=== PATIENT | female | born 1935 | race Caucasian/White ===

== ENCOUNTER → 2023-03-22 14:55 | Outpatient (REF) | payer MEDICARE, BC, SELFPAY ==
[2023-03-22 16:33] LABS: ALT (SGPT) 13 U/L (0-35); AST (SGOT) 25 U/L (14-36); Albumin 4.1 g/dl (3.5-5.0); Alkaline Phosphatase 55 U/L (38-126); Blood Urea Nitrogen 26 mg/dl (7-17); Calcium 9.6 mg/dl (8.4-10.2); Carbon Dioxide 28 mmol/L (22-30); Chloride 102 mmol/L (98-107); Glucose 100 mg/dl (70-99); Potassium 3.8 mmol/L (3.5-5.1); Sodium 139 mmol/L (135-145); Total Bilirubin 0.6 mg/dl (0.2-1.3); eGFR > 60.00
== END ==
LOC: REG 14:55
PROVIDERS: ATTENDING PHYSICIAN Surgery; FAMILY PHYSICIAN Physician Assistant Medical
DX: C50.411 Malignant neoplasm of upper-outer quadrant of right female breast (principal); Z01.812 Encounter for preprocedural laboratory examination
CPT/HCPCS: 36415; 71046; 80053

== ENCOUNTER → 2023-03-25 15:35 | Outpatient (REF) | payer MEDICARE, BC, SELFPAY | LOC: HWRAD 15:35 | PROVIDERS: ATTENDING PHYSICIAN Physical Medicine & Rehabilitation; FAMILY PHYSICIAN Physician Assistant Medical | DX: M54.16 Radiculopathy, lumbar region (principal) | CPT/HCPCS: 72131 ==

== ENCOUNTER 2023-04-15 06:26 | Inpatient (IN) | payer MEDICARE, BC, SELFPAY ==
[2023-04-11 08:40] LABS: Hematocrit 34.5 % (37.0-47.0); Hemoglobin 11.8 g/dL (12.0-16.0); Mean Corp Hgb Conc. 34.2 g/dL (33.0-37.0); Mean Corpuscular Hgb 30.6 pg (27.0-31.0); Mean Corpuscular Volume 89.4 fL (81.0-99.0); Mean Platelet Volume 9.7 fL (7.4-10.4); Platelet Count 213 10^3/uL (130-400); Red Blood Cell Count 3.86 10^6/uL (4.20-5.40); Red Cell Dist. Width 13.2 % (11.5-14.5); White Blood Cell Count 5.4 10^3/uL (4.8-10.8)
[2023-04-11 09:05] LABS: ALT (SGPT) 12 U/L (0-35); AST (SGOT) 26 U/L (14-36); Albumin 4.1 g/dl (3.5-5.0); Alkaline Phosphatase 64 U/L (38-126); Blood Urea Nitrogen 23 mg/dl (7-17); Calcium 9.2 mg/dl (8.4-10.2); Carbon Dioxide 29 mmol/L (22-30); Chloride 101 mmol/L (98-107); Glucose 103 mg/dl (70-99); Potassium 4.3 mmol/L (3.5-5.1); Sodium 138 mmol/L (135-145); Total Bilirubin 0.6 mg/dl (0.2-1.3); Total Protein 7.3 g/dl (6.3-8.2); eGFR > 60.00
[2023-04-11 09:17] LABS: Prealbumin (Transthyretin) 14.6 mg/dl (17.6-36.0)
[2023-04-11 09:30] LABS: Vitamin D, 25-OH*** 45.5 ng/mL (30-80)
[2023-04-11 16:44] VITALS: BMI 42.2
[2023-04-15] VITALS (12 sets, daily range): BP systolic 125–174; BP diastolic 55–83; BMI 42.2
[2023-04-15] MEDS: NORMOSOL-R 1000 IV (08:30)
--- NOTE | 2023-04-15 11:19 | W.IMMPOSTOP ---
Surgical Immed Post Op Note
-
Primary Surgeon: Michele
Assisting Surgeon: None
Pre-op Diagnosis: Right breast ca
Post-op Diagnosis: Same
Procedure Performed: Right modified radical mastectomy
Anesthesia Type: GET
Specimen / Cultures: Right breast and axillary contents
Estimated Blood Loss: 30cc
Complications: None
Operative Findings: None
Axillary Lymph Node Dissection
-
Operation performed with Curative Intent: No
Boundaries: Axillary Vein, Chest Wall, Latissimus Dorsi
Resection performed within boundaries: Yes
Nerves ID'd & Preserved during Dissection: Long Thoracic Nerves, Thoracodorsal Nerve and Branches of Intercostobrachial Nerves
Level III Nodes were Removed: No
[2023-04-15] MEDS: DILAUDID 0.25 MG IV (12:10)
[2023-04-15] MEDS: D5/0.45%NSS with KCL 20 MEQ 1000 IV ×2 (13:06→13:59)
[2023-04-15] MEDS: ProAIR HFA INHALER INH (13:30)
--- NOTE | 2023-04-15 13:48 | PTCARENOTE ---
Pt arrived to 2S in bed. Full assessment completed. Pt drowsy but arouses to verbal stimuli. Nasal Cannula maintained. R breast incision, C/D/I, 4x4 surgical bra maintained. R REDDY drains x2 with sanguinous output noted. IVF infusing per order. Bed
locked and in the lowest position, safety maintained. Oriented to room and call carson, sleeping between care.
[2023-04-15] MEDS: ProAIR HFA INHALER 1 PUFF INH ×2 (15:21→20:17)
[2023-04-15] MEDS: NORCO 5/325 1 TABLET PO (18:36)
[2023-04-15] MEDS: HIPREX 1 GRAM PO (21:25)
[2023-04-15] MEDS: COLACE 100 MG PO (21:25)
[2023-04-16 03:46] VITALS: BP 118/47
[2023-04-16] MEDS: SYNTHROID 50 MCG PO (05:58)
[2023-04-16 07:15] VITALS: BP 141/60
[2023-04-16 07:41] LABS: Hematocrit 30.8 % (37.0-47.0); Hemoglobin 10.7 g/dL (12.0-16.0)
[2023-04-16 07:52] LABS: Blood Urea Nitrogen 30 mg/dl (7-17); Calcium 8.4 mg/dl (8.4-10.2); Carbon Dioxide 30 mmol/L (22-30); Chloride 100 mmol/L (98-107); Estimated Creatinine Clearance 57 ml/min; Glucose 121 mg/dl (70-99); Potassium 3.9 mmol/L (3.5-5.1); Sodium 137 mmol/L (135-145); eGFR > 60.00
[2023-04-16] MEDS: ProAIR HFA INHALER 1 PUFF INH ×4 (07:56→18:14)
[2023-04-16] MEDS: LEXAPRO 10 MG PO (08:48)
[2023-04-16] MEDS: VITAMIN D3 (cholecalciferol) 25 MCG PO (08:48)
[2023-04-16] MEDS: HIPREX 1 GRAM PO ×2 (08:48→20:21)
[2023-04-16] MEDS: CLARITIN 10 MG PO (08:49)
[2023-04-16] MEDS: COLACE 100 MG PO ×2 (08:49→20:21)
[2023-04-16] MEDS: COZAAR 50 MG PO (08:49)
[2023-04-16] MEDS: MYRBETRIQ EXTENDED RELEASE 50 MG PO (08:49)
[2023-04-16] MEDS: PROTONIX 40 MG PO (08:49)
--- NOTE | 2023-04-16 10:43 | W.PN.UPDATE ---
Update Note
Progress Note Update
Pt is POD # 1 S/P right modified radical mastectomy for right breast cancer that progressed on neoadjuvant endocrine therapy. She is awake, alert in bed. Did eat some breakfast. States she is weak and can't move herself in bed nor get out of bed
without assistance. Wound redressed and there is some bloody drainage from the incision laterally. Needs rehab evaluation as she lives alone and can't perform ADLs. 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
dehiscence of the incision. At risk for stroke, will restart Eliquis tonight and monitor for bleeding. Needs ongoing inpatient hospitalization.
[2023-04-16 11:10] VITALS: BP 149/50
--- NOTE | 2023-04-16 11:15 | CM ---
Cm met with pt and son/Koby bedside
[place] with 2 KIRT thru garage
Stairglide to residence
Pt notes independence with her ADLs with use a WW
She also has a showrrt chair, rails, and cpap which she does not utilize at home
Pt has hx at [facility] and [facility]
PCP- Karen Guevara
Rx- [facility]
Discussion with surgeon- weakness noted
Might need SNF, awaiting outcome of PT eval
Deferred dc planning to [facility]
Discharge Disposition- home with VN vs SNF
[2023-04-16 12:27] VITALS: BP 145/56; PULSE 89; O2SAT 98
[2023-04-16] MEDS: D5/0.45%NSS with KCL 20 MEQ IV (14:35)
[2023-04-16 15:15] VITALS: BP 152/59
[2023-04-16] MEDS: TYLENOL 650 MG PO (18:19)
[2023-04-16] MEDS: ELIQUIS 5 MG PO (20:21)
[2023-04-16] MEDS: XALATAN OPHTHALMIC SOLUTION 1 DROP BOTH EYES (20:26)
--- NOTE | 2023-04-16 21:30 | PTCARENOTE ---
Pt. asking to use BSC. Extreme difficulty getting self turned to the edge of bed with two person assist, c/o pain when attempting to help move pt's legs. Pt. then able to stand with rolling walker but stated she could not move her legs to pivot to
the BSC despite being able to earlier in the day. Pt. stood at the bedside for several minutes being unable to move before needing to sit back down. Bed heart used at this time. Will attempt again later.
[2023-04-16] MEDS: NORCO 5/325 1 TABLET PO (21:49)
[2023-04-16 23:11] VITALS: BP 137/57
[2023-04-17] MEDS: TYLENOL 650 MG PO (04:25)
[2023-04-17 07:15] VITALS: BP 163/63
[2023-04-17] MEDS: ELIQUIS 5 MG PO ×2 (07:49→20:25)
[2023-04-17] MEDS: SYNTHROID 50 MCG PO (07:49)
[2023-04-17] MEDS: CLARITIN 10 MG PO (07:49)
[2023-04-17] MEDS: HIPREX 1 GRAM PO ×2 (07:49→20:25)
[2023-04-17] MEDS: COLACE 100 MG PO ×2 (07:49→20:25)
[2023-04-17] MEDS: COZAAR 50 MG PO (07:49)
[2023-04-17] MEDS: MYRBETRIQ EXTENDED RELEASE 50 MG PO (07:49)
[2023-04-17] MEDS: LEXAPRO 10 MG PO (07:49)
[2023-04-17] MEDS: PROTONIX 40 MG PO (07:49)
[2023-04-17] MEDS: VITAMIN D3 (cholecalciferol) 25 MCG PO (07:49)
[2023-04-17] MEDS: ProAIR HFA INHALER 1 PUFF INH ×4 (08:13→19:47)
--- NOTE | 2023-04-17 12:18 | W.PN.UPDATE ---
Update Note
Progress Note Update
Pt is POD #2 S/P right modified radical mastectomy. She states she feels a little better than yesterday, was able to move her left leg a little more. Tolerating lunch. Eliquis initiated and no signs of bleeding so far. Nurse will change out surgical
bra. Continue to optimize transfers, standing and ambulating per PT. Await disposition plaining. Pt must remain inpatient for bleedning monitoring, flap monitoring and requiring maximum assistance with transfers and sitting and ambulation.
[2023-04-17 12:45] VITALS: PULSE 60; O2SAT 94
[2023-04-17 13:12] VITALS: PULSE 60; O2SAT 94
[2023-04-17 15:15] VITALS: BP 127/64
--- NOTE | 2023-04-17 15:46 | CM ---
Bedside meeting with pt to discussed dc planning
Acute vs SNF recommended
Pt deferred planning to [facility]
Call with [facility]- options discussed
[facility]ing [facility]
PASSR completed and referrals sent via [facility]
Referral also sent to Michael
Pt will have qualifying stay tomorrow
Discharge Disposition- acute vs SNF
[2023-04-17] MEDS: XALATAN OPHTHALMIC SOLUTION 1 DROP BOTH EYES (20:25)
[2023-04-17 23:00] VITALS: BP 154/65
[2023-04-18] MEDS: BENADRYL 25 MG PO (00:11)
[2023-04-18] MEDS: NORCO 5/325 1 TABLET PO (03:46)
[2023-04-18 07:00] VITALS: BP 165/64
[2023-04-18] MEDS: SYNTHROID 50 MCG PO (07:05)
--- NOTE | 2023-04-18 08:00 | W.PN.UPDATE ---
Update Note
Progress Note Update
88 Y/O POD #3 S/P right modified radical mastectomy. Recovering well; await Rehab placement. Dressing should be changed daily. PO check in my office for drain removal in 7-10 days.
[2023-04-18] MEDS: ProAIR HFA INHALER 1 PUFF INH ×2 (08:26→11:50)
[2023-04-18] MEDS: COLACE 100 MG PO (08:39)
[2023-04-18] MEDS: VITAMIN D3 (cholecalciferol) 25 MCG PO (08:39)
[2023-04-18] MEDS: ELIQUIS 5 MG PO (08:39)
[2023-04-18] MEDS: HIPREX 1 GRAM PO (08:40)
[2023-04-18] MEDS: COZAAR 50 MG PO (08:40)
[2023-04-18] MEDS: LEXAPRO 10 MG PO (08:40)
[2023-04-18] MEDS: PROTONIX 40 MG PO (08:40)
[2023-04-18] MEDS: CLARITIN 10 MG PO (08:40)
[2023-04-18] MEDS: MYRBETRIQ EXTENDED RELEASE 50 MG PO (08:40)
--- NOTE | 2023-04-18 12:03 | CM ---
Addendum entered by Archie Dotson 04/18/23 12:44:
CM received a phone call from [facility] acute rehabilitation engineer and she confirmed that a referral for acute level of rehab ay [facility] has been denied.
[facility] consult cancelled.
CM spoke to [facility] director of valuation and she confirmed that pt is accepted for admission today. All other SNFs that received a referral denied a referral.
According to MD pt is medically stable to be discharged today.
CM met with pt and spoke to pt's son Parker and daughter in law Samantha and they expressed their agreement with discharge. IMM reviewed with pt, signed, placed in chart, pt has a copy.
Both pt and her family are aware that [facility] has accepted the pt and they expressed their agreement with pt going to [facility] for a short term rehab.
will arrange transportation, BLS. PMNC completed and left with .
[facility] nursing report: [phone]
Discharge instructions fax: [phone]
D/C plan: [facility] today
Original Note:
CM following re: discharge planing.
Reviewed pt's chart, met with pt.
PT and OT evaluations noted - acute rehab vs SNF recommended.
No SNF has responded to accept the pt.
CM spoke to [facility] acute rehabilitation engineer, assembly member consult requested. [facility] acute rehabilitation engineer following. Awaiting for determination.
D/C plan: probably [facility]
CM will follow to assist pt with discharge planning.
[2023-04-18 12:24] VITALS: PULSE 91; O2SAT 96
--- NOTE | 2023-04-18 12:29 | W.DS.TRANS ---
DC Summary - Loss Mitigation Specialist
-
Discharge Instructions:
Discharge Diagnosis/Procedures Right breast cancer, S/P right modified radical
mastectomy
Diet Regular,Supplements
Additional Diets twice daily protein supplement
Activity Other activity
Additional Activity No weight bearing RUE
Driving Restrictions No driving
Bathing Restrictions OK to Shower
Wound Care Change dressing daily. Strip drains daily and
record drainage
Instructions:
Stand-Alone Forms:
Changes to Home Medications: No
Discharge Medications:
DC Medications w/original date entered in [facility]
escitalopram oxalate 10 mg tablet 10 mg PO DAILY Mental Health/Anxiety 05/22/18
levothyroxine 50 mcg tablet 50 mcg PO DAILY Thyroid 05/22/18
apixaban 5 mg tablet (Eliquis) 5 mg PO BID Blood clot prevention/tx ##0 08/31/20
fluticasone 250 mcg-salmeterol 50 mcg/dose blistr powdr for inhalation (Wixela Inhub) 1 inh inhalation R BID Lung/breathing issues ##0 08/31/20
furosemide 20 mg tablet (Lasix) 20 mg PO DAILY Fluid retention/Swelling 03/07/22
losartan 50 mg tablet 50 mg PO DAILY Blood pressure 03/07/22
mirabegron 50 mg tablet,extended release 24 hr (Myrbetriq) 50 mg PO DAILY Urinary issue 03/07/22
albuterol sulfate 2.5 mg/3 mL (0.083 %) solution for nebulization 2.5 mg inhalation R Q6HPRN PRN SOB,WHEEZING,COUGH 05/28/22
albuterol sulfate 90 mcg/actuation aerosol inhaler 1 puff inhalation Q4HPRN PRN SOB 05/28/22
fluticasone propionate 50 mcg/actuation nasal spray,suspension 1 spray intranasal DAILY Congestion 05/28/22
acetaminophen 500 mg tablet (Tylenol Extra Strength) 1,000 mg PO BID PRN mild pain 04/12/23
cholecalciferol (vitamin D3) 25 mcg (1,000 unit) tablet (Vitamin D3) 25 mcg PO DAILY Supplement 04/12/23
hydrocodone 10 mg-acetaminophen 325 mg tablet 1 tab PO PRN PRN pain 04/12/23
letrozole 2.5 mg tablet 2.5 mg PO DAILY Cancer 04/12/23
loratadine 10 mg tablet 10 mg PO DAILY Allergies 04/12/23
methenamine hippurate 1 gram tablet 1 g PO BID Urinary Issue 04/12/23
acetaminophen 650 mg tablet,extended release 650 mg PO Q8H PRN pain 04/15/23
Home Medication Changes
Pending Results: Yes
Additional Pending Results:
Right breast and axillary content pathology.
[2023-04-18 15:00] VITALS: BP 125/63
[2023-04-18] MEDS: ProAIR HFA INHALER INH (16:35)
--- NOTE | 2023-04-21 08:42 | W.DCSUMMARY ---
Discharge Summary
Discharge Data
Date of Admission: 04/15/23
Date of Discharge: 04/21/23
-
Pending Results: Yes
Additional Pending Results:
Pathology report
Hospital Course
Recovered well, could not transfer without assistance.
Discharge Plan
-
Patient Disposition: Acute Rehab Facility
Discharge Diagnosis/Procedures: Right breast cancer, S/P right modified radical mastectomy
Condition: Good
Diet: Regular and Supplements
Additional Diets: twice daily protein supplement
Activity: Other activity
Additional Activity: No weight bearing RUE
Driving Restrictions: No driving
Bathing Restrictions: OK to Shower
Wound Care: Change dressing daily. Strip drains daily and record drainage
Referrals:
Karen Guevara MD [Family Provider] -
Prescriptions:
Continued
levothyroxine 50 MCG tablet
50 mcg PO DAILY
escitalopram oxalate 10 MG tablet
10 mg PO DAILY
fluticasone propion-salmeterol [Wixela Inhub] 250-50 mcg/dose Blister With Device
1 inh INHALATION R BID Qty: 0
Eliquis 5 mg Tablet
5 mg PO BID Qty: 0
losartan 50 mg Tablet
50 mg PO DAILY
furosemide [Lasix] 20 mg Tablet
20 mg PO DAILY
Myrbetriq 50 mg Tablet Extended Release 24 Hr
50 mg PO DAILY
albuterol sulfate 2.5 mg /3 mL (0.083 %) solution for nebulization
2.5 mg inhalation R Q6HPRN PRN (Reason: SOB,WHEEZING,COUGH)
albuterol sulfate 90 mcg/actuation HFA aerosol inhaler
1 puff INHALATION Q4HPRN PRN (Reason: SOB)
fluticasone propionate 50 mcg/actuation [place],Suspension
1 spray INTRANASAL DAILY
methenamine hippurate 1 gram Tablet
1 g PO BID
letrozole 2.5 mg Tablet
2.5 mg PO DAILY
loratadine 10 mg Tablet
10 mg PO DAILY
cholecalciferol (vitamin D3) [Vitamin D3] 25 mcg (1,000 unit) Tablet
25 mcg PO DAILY
hydrocodone-acetaminophen 10-325 mg tablet
1 tab PO PRN PRN (Reason: pain)
acetaminophen [Tylenol Extra Strength] 500 mg tablet
1,000 mg PO BID PRN (Reason: mild pain)
acetaminophen 650 mg Tablet Extended Release
650 mg PO Q8H PRN (Reason: pain)
Discharge Orders:
Discharge Patient (As Directed); Ordered 04/18/23
Ordered By: Stella Bautista
Discharge Date and Time
Discharge Date/Time: 04/18/23 18:00
== END 2023-04-18 18:00 | DRG 580 ==
LOC: 2 SOUTH 06:26
PROVIDERS: ADMITTING PHYSICIAN Surgery; FAMILY PHYSICIAN Surgery
PROC: 07B50ZX Excision of Right Axillary Lymphatic, Open Approach, Diagnostic (ICD-10-PCS; 2023-04-15)
PROC: 0HTT0ZZ Resection of Right Breast, Open Approach (ICD-10-PCS; 2023-04-15)
DX: C50.911 Malignant neoplasm of unspecified site of right female breast (principal); C77.3 Secondary and unspecified malignant neoplasm of axilla and upper limb lymph nodes; I10 Essential (primary) hypertension; I25.10 Atherosclerotic heart disease of native coronary artery without angina pectoris; I48.91 Unspecified atrial fibrillation; G47.33 Obstructive sleep apnea (adult) (pediatric); K21.9 Gastro-esophageal reflux disease without esophagitis; Z79.01 Long term (current) use of anticoagulants
CPT/HCPCS: 88307; 36415; 80048; 80053; 82306; 84134; 85014; 85018; 85027; 94640; 97112; 97116; 97163; 97167; 97530; 97535; A4648; C1729

== ENCOUNTER → 2023-05-12 17:48 | Outpatient (REF) | payer MEDICARE, BC, SELFPAY ==
[2023-05-12 18:17] LABS: Urine Albumin Trace (Neg - Trace); Urine Bilirubin Negative (Negative); Urine Character Clear (Clear); Urine Color Yellow; Urine Glucose Negative (Negative); Urine Ketone Negative (Negative); Urine Leukocyte Trace (Negative); Urine Nitrite Negative (Negative); Urine Occult Blood Negative (Negative); Urine Urobilinogen Negative (Neg - 1+)
[2023-05-12 18:24] LABS: Urine Calcium Oxalate Crystals Present; Urine Red Blood Cell None Seen /HPF (0-2); Urine Squamous Cell 0-2 /LPF (Few)
== END ==
LOC: OLABP 17:48
PROVIDERS: ATTENDING PHYSICIAN Student in an Organized Health Care Education/Training Program
DX: M62.81 Muscle weakness (generalized) (principal); M62.59 Muscle wasting and atrophy, not elsewhere classified, multiple sites; C50.411 Malignant neoplasm of upper-outer quadrant of right female breast; R39.15 Urgency of urination
CPT/HCPCS: 81003; 81015; 87086

== ENCOUNTER 2023-05-29 19:57 | Emergency (ER) | payer MEDICARE, BC, SELFPAY ==
[2023-05-29 20:01] VITALS: BP 123/98
[2023-05-29 20:14] LABS: % Basophils 0.4 % (0-2); % Eosinophils 1.3 % (0-6); % Immature Granulocytes 0.3 % (0-0.5); % Lymphocytes 7.9 % (20.5-51.1); % Monocytes 7.9 % (1.7-9.3); % Neutrophils 82.2 % (42.2-75.2); Absolute Eosinophils 0.1 10^3/uL (0-0.7); Absolute Lymphocytes 0.8 10^3/uL (1.2-3.4); Absolute Monocytes 0.8 10^3/uL (0.1-0.6); Absolute Neutrophils 8.5 10^3/uL (1.4-6.5); Hematocrit 35.8 % (37.0-47.0); Hemoglobin 11.8 g/dL (12.0-16.0); Mean Corpuscular Hgb 30.1 pg (27.0-31.0); Mean Corpuscular Volume 91.3 fL (81.0-99.0); Mean Platelet Volume 9.3 fL (7.4-10.4); Nucleated Red Blood Cells % 0 %; Platelet Count 237 10^3/uL (130-400); Red Blood Cell Count 3.92 10^6/uL (4.20-5.40); Red Cell Dist. Width 13.9 % (11.5-14.5); White Blood Cell Count 10.4 10^3/uL (4.8-10.8)
[2023-05-29 20:33] LABS: ALT (SGPT) 16 U/L (0-35); AST (SGOT) 25 U/L (14-36); Alkaline Phosphatase 55 U/L (38-126); Blood Urea Nitrogen 26 mg/dl (7-17); Calcium 9.1 mg/dl (8.4-10.2); Carbon Dioxide 26 mmol/L (22-30); Chloride 102 mmol/L (98-107); Glucose 168 mg/dl (70-99); Potassium 3.8 mmol/L (3.5-5.1); Sodium 137 mmol/L (135-145); Total Bilirubin 0.7 mg/dl (0.2-1.3); Total Protein 7.2 g/dl (6.3-8.2); eGFR > 60.00
[2023-05-29 22:01] VITALS: BMI 35.8
--- NOTE | 2023-05-29 23:32 | ED.GENMED ---
History of Present Illness
General
Chief Complaint: Bowel Problem
Source: patient, family (Son and [id number] at bedside) and previous hospital records (Hospitalization April 14 to April 17 for right modified radical mastectomy performed on April 14)
Exam Limitations: none
Time Seen by Provider: 05/29/23 22:41
Travel History
Have you had any contact with someone who has COVID-19?: No
Do you have any symptoms of coronavirus? Fever > 100 degrees, chills, cough, shortness of breath, sore throat, loss of taste or smell, muscle aches, or headache?: No
History of Present Illness
History of Present Illness:
This is an 88-year-old woman who resides at home with family. She has history of locally advanced right breast cancer initially treated with hormone therapy but due to progression of disease she underwent right modified radical mastectomy April 14.
Has been doing well postoperatively and has not required narcotic pain medication. She does however admit to somewhat chronic constipation with occasional episodes of severe constipation. She does not take laxatives nor stool softeners on a daily
basis.
She complains of 1 week history of significant constipation with moderate rectal pressure and inability to pass a stool. She took a dose of MiraLAX or stool softener earlier today, thus far ineffective.
Her rcbxfesb-[id number] attempted to manually disimpact but states there is a large amount of soft stool within her rectum that was difficult to remove. She then tried a fleets enema without success.
She denies abdominal pain, no difficulty urinating, no fever nor chills.
She has chronic bilateral lower extremity edema, chronic ambulatory dysfunction uses a walker as well as wheelchair. No recent falls.
Past History
Past History
ED Past Medical History: Arrthythmia (PAF, chronically maintained on Eliquis), Asthma, CAD, Cancer (Right breast cancer), GERD, HTN, Hypothyroidism, Other (Osteoarthritis, spinal stenosis/ambulatory dysfunction, chronic cystitis, obstructive sleep
apnea) and Other (Pacemaker)
ED Past Surgical History: Appendectomy, Cardiac (Pacemaker 2019), Cholecystectomy, Gynecological (Hysterectomy), Orthopedic (Knee replacement) and Other (Right mastectomy April 15, 2023)
Social History
Tobacco: Non-smoker
Alcohol: None
Personal:
Living: with family ( family is close by)
Employment: Retired
Family History
Family History: Other
Phy Exam
Physical Exam
Physical Exam:
GENERAL: This is an 88-year-old obese woman who appears her stated age, awake and alert, pleasant, appears mildly uncomfortable but easily communicative. Son and deizmwle-se-[id number] accompanying.
EYE: anicteric
NECK: Supple, nontender, no meningismus, no significant adenopathy.
ENT: oral mucosa is moist. No rhinorrhea.
CARDIAC: Regular rate and rhythm. no murmur.
LUNGS: Clear breath sounds bilaterally, no acute respiratory distress, no wheezes/rales/rhonchi
ABDOMEN: Rotund, soft, nondistended, without focal tenderness, no r/g, no cvat. normoactive BS.
NEUROLOGICAL: Alert and oriented x3, no focal neuro deficits.
SKIN: Warm and dry, normal color, mild bilateral lower extremity venous stasis skin thickening with chronic appearing alecia discoloration bilateral lower extremities
MUSCULOSKELETAL: +2-3 pitting edema bilateral lower extremities, peripheral pulses are full and equal b/l. No palpable tenderness.
PSYCH: Normal and appropriate interaction.
Course
Orders/Labs/Results
Orders:
Orders
05/29/23 20:07
CMP [Comprehensive Metabolic Panel] Urgent
Complete Blood Count/With Diff Urgent
05/29/23 22:45
CR Obstruct Series W/pa Chest Urgent
Comment:
Reason For Exam: abd discomfort, constipation x 1 week
05/29/23 23:44
Enema- Treatment ONCE
Type: Milk of Molasses
Abnormal Lab Results
05/29/23
20:07
RBC 3.92 L 10^6/uL
(4.20-5.40)
Hgb 11.8 L g/dL
(12.0-16.0)
Hct 35.8 L %
(37.0-47.0)
Absolute Neuts (auto) 8.5 H 10^3/uL
(1.4-6.5)
Absolute Lymphs (auto) 0.8 L 10^3/uL
(1.2-3.4)
Absolute Monos (auto) 0.8 H 10^3/uL
(0.1-0.6)
Neutrophils % 82.2 H %
(42.2-75.2)
Lymphocytes % 7.9 L %
(20.5-51.1)
BUN 26 H mg/dl
(7-17)
Glucose 168 H mg/dl
(70-99)
05/29/23 20:07
05/29/23 20:07
Vital Signs
Initial and Last Documented VS:
Initial Vital Signs
Temp Pulse Resp BP Pulse Ox
98.4 F 71 16 123/98 97
05/29/23 20:01 05/29/23 20:01 05/29/23 20:01 05/29/23 20:01 05/29/23 20:01
Last Documented Vital Signs
Temp Pulse Resp BP Pulse Ox
98.4 F 88 20 112/75 94
05/29/23 20:01 05/30/23 02:14 05/30/23 02:14 05/30/23 02:14 05/30/23 02:14
MDM/Problems Addressed
Differential Diagnosis Includes:
Concern for acute on chronic constipation, fecal impaction. Abdominal exam is soft and nontender, bowel obstruction is much less likely.
Labs are reassuring with normal white blood cell count, very mild but stable anemia.
Chemistries are unremarkable save for mildly elevated random glucose of 168.
Normal creatinine, BUN mildly elevated at 26, similar to previous.
Will check obstruction series, assess for degree of constipation.
Patient may require digital disimpaction as well as enema.
*Radiology
Radiology exam reviewed: preliminary read by ED provider (Obstruction series shows moderate stool in the rectum and distal sigmoid but no evidence of significant fecal impaction, no obstruction.)
*Pulse Oximetry
Patient hypoxic: no
*Critical Care Note
Total Time (30-74mins, 75-104mins- exclusive of procedures): Not Applicable
Update Note
Update Note:
05/30/2023 0105 AM
After digital disimpaction by nurse and enema patient has passed very large soft stool.
Feeling markedly improved.
Will discharge to home with recommendation she initiate daily MiraLAX.
Follow-up with PCP for recheck.
ED Attending Note
-
Portions of this chart may have been created with voice recognition software.� Occasional wrong word or��sound alike� substitutions may have occurred due to the inherent limitations of voice recognition software.
Discharge Plan
Departure
Patient Disposition: Home (Routine Discharge)
Date of Disposition: 05/30/23
Time of Disposition: 01:06
Patient with high blood pressure during this ER visit?: No
Condition: Good
Discharge Problem:
Fecal impaction in rectum
Instructions: Constipation, Adult (DC), Fecal Impaction (DC)
Prescriptions:
No Action
levothyroxine 50 MCG tablet
50 mcg PO DAILY
escitalopram oxalate 10 MG tablet
10 mg PO DAILY
fluticasone propion-salmeterol [Wixela Inhub] 250-50 mcg/dose Blister With Device
1 inh INHALATION R BID Qty: 0
Eliquis 5 mg Tablet
5 mg PO BID Qty: 0
losartan 50 mg Tablet
50 mg PO DAILY
furosemide [Lasix] 20 mg Tablet
20 mg PO DAILY
Myrbetriq 50 mg Tablet Extended Release 24 Hr
50 mg PO DAILY
albuterol sulfate 2.5 mg /3 mL (0.083 %) solution for nebulization
2.5 mg inhalation R Q6HPRN PRN (Reason: SOB,WHEEZING,COUGH)
albuterol sulfate 90 mcg/actuation HFA aerosol inhaler
1 puff INHALATION Q4HPRN PRN (Reason: SOB)
fluticasone propionate 50 mcg/actuation [place],Suspension
1 spray INTRANASAL DAILY
methenamine hippurate 1 gram Tablet
1 g PO BID
letrozole 2.5 mg Tablet
2.5 mg PO DAILY
loratadine 10 mg Tablet
10 mg PO DAILY
cholecalciferol (vitamin D3) [Vitamin D3] 25 mcg (1,000 unit) Tablet
25 mcg PO DAILY
hydrocodone-acetaminophen 10-325 mg tablet
1 tab PO PRN PRN (Reason: pain)
acetaminophen [Tylenol Extra Strength] 500 mg tablet
1,000 mg PO BID PRN (Reason: mild pain)
acetaminophen 650 mg Tablet Extended Release
650 mg PO Q8H PRN (Reason: pain)
Referrals:
Carolina Davis PA [Family Provider] - Call in 1-3 days for appt
Activity Restrictions/Additional Instructions:
I want you to start MiraLAX daily, 17 g which is 1 individual packet of MiraLAX versus 1 capful of MiraLAX mixed in water or tea or juice. Continue this on a daily basis to help keep your stools soft and easy to pass.
Interventions
Interventions:
*Risk Screen - Suicide Last Done: 05/29/23 20:01
*General Assessment Last Done: 05/29/23 20:01
*Neglect/Abuse Screening Last Done: 05/29/23 20:01
ED- Fall Risk Assessment Last Done: 05/29/23 21:59
*ED COVID-19 Vaccine History Last Done: 05/29/23 20:01
*Nursing Disposition Last Done: 05/30/23 02:14
LU-Wnemkw-Xcthqnasvt Assessment Last Done: 05/29/23 22:00
Discharge Date and Time
Discharge Date/Time: 05/30/23 01:55
Print Language: CHADIAN
[2023-05-30 01:40] VITALS: BP 112/75
[2023-05-30 02:14] VITALS: BP 112/75
== END 2023-05-30 01:55 | disposition home or self-care (01) ==
LOC: EMR 19:57
PROVIDERS: Student in an Organized Health Care Education/Training Program; EMERGENCY PHYSICIAN Emergency Medicine; FAMILY PHYSICIAN Physician Assistant Medical
DX: K56.41 Fecal impaction (principal); C50.911 Malignant neoplasm of unspecified site of right female breast; R60.0 Localized edema; R26.2 Difficulty in walking, not elsewhere classified; I48.0 Paroxysmal atrial fibrillation; J45.909 Unspecified asthma, uncomplicated; I25.10 Atherosclerotic heart disease of native coronary artery without angina pectoris; I10 Essential (primary) hypertension; K21.9 Gastro-esophageal reflux disease without esophagitis; G47.33 Obstructive sleep apnea (adult) (pediatric); M48.00 Spinal stenosis, site unspecified; M19.90 Unspecified osteoarthritis, unspecified site; N30.20 Other chronic cystitis without hematuria; E03.9 Hypothyroidism, unspecified; Z98.890 Other specified postprocedural states; Z95.0 Presence of cardiac pacemaker; Z79.01 Long term (current) use of anticoagulants; Z90.11 Acquired absence of right breast and nipple; Z90.49 Acquired absence of other specified parts of digestive tract; Z91.048 Other nonmedicinal substance allergy status
CPT/HCPCS: 99283; 74022; 80053; 85025

== ENCOUNTER → 2023-06-16 15:55 | Outpatient (REF) | payer MEDICARE, BC, SELFPAY | LOC: RAD 15:55 | PROVIDERS: ATTENDING PHYSICIAN Physician Assistant Medical | DX: R06.02 Shortness of breath (principal); R60.0 Localized edema | CPT/HCPCS: 71046 ==

== ENCOUNTER 2023-06-21 20:01 | Inpatient (IN) | payer MEDICARE, BC, SELFPAY ==
[2023-06-21 15:42] VITALS: BP 156/64
--- NOTE | 2023-06-21 16:25 | ED.GENMED ---
History of Present Illness
<Christoph Boucher PA-C - Last Filed: 06/24/23 21:46>
General
Chief Complaint: Skin Problem
Time Seen by Provider: 06/21/23 16:00
Travel History
Have you had any contact with someone who has COVID-19?: No
Do you have any symptoms of coronavirus? Fever > 100 degrees, chills, cough, shortness of breath, sore throat, loss of taste or smell, muscle aches, or headache?: No
History of Present Illness
History of Present Illness:
Patient is an 88-year-old female with past medical history of age-related memory loss, asthma, sleep apnea on CPAP, constipation, hypothyroidism, glaucoma, history of skin and breast cancer, anxiety, and history of chronic lower extremity swelling,
here today for evaluation of approximately 2 weeks of relatively painless bilateral symmetric lower extremity swelling. She also endorses redness and new skin changes. She denies significant pain or discomfort. No fevers. No chest pain or
difficulty breathing. She has been able to ambulate. She typically uses a walker for ambulation. Patient was evaluated by her primary care provider last week and started on cephalexin. She has been taking this medication without significant
improvement in symptoms. She was directed by her family doctor to seek evaluation in the hospital today given persistent symptoms.
Past History
<Christoph Boucher PA-C - Last Filed: 06/24/23 21:46>
Past History
ED Past Medical History: Arrthythmia (PAF, chronically maintained on Eliquis), Asthma, CAD, Cancer (Right breast cancer), GERD, HTN, Hypothyroidism, Other (Osteoarthritis, spinal stenosis/ambulatory dysfunction, chronic cystitis, obstructive sleep
apnea) and Other (Pacemaker)
ED Past Surgical History: Appendectomy, Cardiac (Pacemaker 2019), Cholecystectomy, Gynecological (Hysterectomy), Orthopedic (Knee replacement) and Other (Right mastectomy April 15, 2023)
Social History
Tobacco: Non-smoker
Alcohol: None
Personal:
Living: with family ( family is close by)
Employment: Retired
Family History
Family History: Other
Review of Systems
<Christoph Boucher PA-C - Last Filed: 06/24/23 21:46>
Review of Systems
All Other Systems: ROS reviewed and negative except as documented in HPI and ROS
Phy Exam
<Christoph Boucher PA-C - Last Filed: 06/24/23 21:46>
Physical Exam
Physical Exam:
GENERAL: Alert , in no apparent distress
EYE: pupils equal and reactive
NECK: Supple, no significant adenopathy.
ENT: o/p clr, mmm.
CARDIAC: Regular rate and rhythm .
LUNGS: Clear breath sounds bilaterally, no acute respiratory distress, no wheezes/rales/rhonchi
ABDOMEN: Soft, without focal tenderness, no r/g, no cvat
NEUROLOGICAL: Alert and oriented, no focal neuro deficits
SKIN: Warm and dry, skin intact.
MUSCULOSKELETAL: There is significant bilateral symmetric relatively nontender 4+ pitting edema to the bilateral lower extremities, there are chronic appearing hyperpigmented appearing lesions with scattered crusted scabs noted bilaterally, there is
mild nontender erythema noted throughout distally below the knees, there are no open wounds, no palpable cord, there is full range of motion, sensation and motor intact, pulses 2+ throughout, compartments soft throughout
PSYCH: Normal and appropriate interaction.
Course
<Christoph Boucher PA-C - Last Filed: 06/24/23 21:46>
Orders/Labs/Results
Orders:
Orders
06/21/23 16:23
CR Leg Tibia/fibula Left 2 Vw Urgent
Comment:
Reason For Exam: lower extremity redness/swelling
CR Leg Tibia/fibula Right 2 Vw Urgent
Comment:
Reason For Exam: lower extremity redness/swelling
06/21/23 16:24
CR Chest - 2 Views Urgent
Comment:
Reason For Exam: lower extremity swelling
06/21/23 16:30
Basic Metabolic Panel Urgent
Complete Blood Count/With Diff Urgent
Lactic Acid Urgent
NT-proBNP Urgent
Blood Culture Q30M
ARMIDA Source: Blood/Venous
Specimen Description:
Blood Culture Q30M
ARMIDA Source: Blood/Venous
Specimen Description:
06/21/23 17:29
Furosemide [Lasix] 40 mg IV ONCE ONE
06/21/23 17:50
Clindamycin 600 mg/50 ml [Cleocin] 600 mg in 50 ml IV NOW
06/21/23 19:14
Admit/Transfer Patient As Directed
Co-Sign Provider:
Level of Care: Inpatient admission
Assign to:: Medical/Surgical
Physician / Group: Hospitalist
Diagnosis: Cellulitis
Patient Condition: Fair
Reason for Hospitalization: Cellulitis
Lymphedema
Expected length of stay greater than two midnights?: Yes
ELOS- Estimated Length of Stay in days: 4
I certify the patient meets the requirements for IP care: Yes
06/21/23 19:22
Code Status As Directed
Resuscitation Status: Full Code
06/21/23 20:40
Hydrocodone 7.5/APAP 325 [Allen 7.5/325] 1 tablet PO Q6HPRN PRN
06/21/23 20:43
Albuterol [ProAIR HFA INHALER] 1 puff INH R Q4HPRN PRN
Apixaban [Eliquis] 5 mg PO BID
Loratadine [Claritin] 10 mg PO DAILY@1999
Polyethylene Glycol Powder [Miralax] 17 grams PO HSPRN PRN
06/21/23 20:43
INFECTIOUS DISEASE CONSULT Routine
Consulting Provider: Kathe León
Was physician already notified: Yes
Bladder Scan As Directed
Follow Bladder Retention/Intermittent Cath Algorithm?: Yes
PRN if no void in __ hours: 6
Frequency: Per Retention Algorithm
If Bladder Scan Result >: 400
then:: Straight cath
Straight Cath As Directed
Frequency: Per Retention Algorithm
Additional Instructions: straight cath as needed per acute urinary retention algorithm for 24 hrs
Additional Instructions: for bladder scan greater than 400 mL
Pt Eval And Treat Routine
Activity Level: Ambulate
06/21/23 21:00
Fluticasone/Salmeterol 115/21 [Advair Hfa 115/21 Mcg Inhaler] 2 puff INH R BID
Tolterodine Extended Release [Detrol LA] 2 mg PO DAILY@1999
06/21/23 22:00
Latanoprost [Xalatan Ophthalmic Solution] See Dose Instructions BOTH EYES HS
06/22/23 06:00
Levothyroxine [Synthroid] 50 mcg PO DAILY @ 0600
06/22/23 08:00
Escitalopram Oxalate [Lexapro] 10 mg PO DAILY
Losartan [Cozaar] 50 mg PO DAILY
06/22/23 12:00
Albuterol Nebs [Ventolin Nebules] 2.5 mg INH R DAILY@1200
Abnormal Lab Results
06/21/23
16:30
RBC 3.60 L 10^6/uL
(4.20-5.40)
Hgb 10.9 L g/dL
(12.0-16.0)
Hct 33.2 L %
(37.0-47.0)
MCHC 32.8 L g/dL
(33.0-37.0)
Absolute Lymphs (auto) 0.7 L 10^3/uL
(1.2-3.4)
Absolute Monos (auto) 0.8 H 10^3/uL
(0.1-0.6)
Lymphocytes % 11.3 L %
(20.5-51.1)
Monocytes % 12.6 H %
(1.7-9.3)
Eosinophils % 6.4 H %
(0-6)
BUN 31 H mg/dl
(7-17)
Glucose 113 H mg/dl
(70-99)
06/21/23 16:30
06/21/23 16:30
Vital Signs
Initial and Last Documented VS:
Initial Vital Signs
Temp Pulse Resp BP Pulse Ox
98.0 F 93 20 156/64 94
06/21/23 15:42 06/21/23 15:42 06/21/23 15:42 06/21/23 15:42 06/21/23 15:42
Last Documented Vital Signs
Temp Pulse Resp BP Pulse Ox
98.8 F 60 12 133/54 93
06/24/23 15:55 06/24/23 20:05 06/24/23 20:05 06/24/23 15:55 06/24/23 20:05
<Thais Preciado MD - Last Filed: 06/21/23 17:27>
Orders/Labs/Results
Orders:
Orders
06/21/23 16:23
CR Leg Tibia/fibula Left 2 Vw Urgent
Comment:
Reason For Exam: lower extremity redness/swelling
CR Leg Tibia/fibula Right 2 Vw Urgent
Comment:
Reason For Exam: lower extremity redness/swelling
06/21/23 16:24
CR Chest - 2 Views Urgent
Comment:
Reason For Exam: lower extremity swelling
06/21/23 16:30
Basic Metabolic Panel Urgent
Complete Blood Count/With Diff Urgent
Lactic Acid Urgent
NT-proBNP Urgent
Blood Culture Q30M
ARMIDA Source: Blood/Venous
Specimen Description:
Blood Culture Q30M
ARMIDA Source: Blood/Venous
Specimen Description:
06/21/23 17:29
Furosemide [Lasix] 40 mg IV ONCE ONE
06/21/23 17:50
Clindamycin 600 mg/50 ml [Cleocin] 600 mg in 50 ml IV NOW
06/21/23 19:14
Admit/Transfer Patient As Directed
Co-Sign Provider:
Level of Care: Inpatient admission
Assign to:: Medical/Surgical
Physician / Group: Hospitalist
Diagnosis: Cellulitis
Patient Condition: Fair
Reason for Hospitalization: Cellulitis
Lymphedema
Expected length of stay greater than two midnights?: Yes
ELOS- Estimated Length of Stay in days: 4
I certify the patient meets the requirements for IP care: Yes
06/21/23 19:22
Code Status As Directed
Resuscitation Status: Full Code
06/21/23 20:40
Hydrocodone 7.5/APAP 325 [Allen 7.5/325] 1 tablet PO Q6HPRN PRN
06/21/23 20:43
Albuterol [ProAIR HFA INHALER] 1 puff INH R Q4HPRN PRN
Apixaban [Eliquis] 5 mg PO BID
Loratadine [Claritin] 10 mg PO DAILY@1999
Polyethylene Glycol Powder [Miralax] 17 grams PO HSPRN PRN
06/21/23 20:43
INFECTIOUS DISEASE CONSULT Routine
Consulting Provider: Kathe León
Was physician already notified: Yes
Bladder Scan As Directed
Follow Bladder Retention/Intermittent Cath Algorithm?: Yes
PRN if no void in __ hours: 6
Frequency: Per Retention Algorithm
If Bladder Scan Result >: 400
then:: Straight cath
Straight Cath As Directed
Frequency: Per Retention Algorithm
Additional Instructions: straight cath as needed per acute urinary retention algorithm for 24 hrs
Additional Instructions: for bladder scan greater than 400 mL
Pt Eval And Treat Routine
Activity Level: Ambulate
06/21/23 21:00
Fluticasone/Salmeterol 115/21 [Advair Hfa 115/21 Mcg Inhaler] 2 puff INH R BID
Tolterodine Extended Release [Detrol LA] 2 mg PO DAILY@1999
06/21/23 22:00
Latanoprost [Xalatan Ophthalmic Solution] See Dose Instructions BOTH EYES HS
06/22/23 06:00
Levothyroxine [Synthroid] 50 mcg PO DAILY @ 0600
06/22/23 08:00
Escitalopram Oxalate [Lexapro] 10 mg PO DAILY
Losartan [Cozaar] 50 mg PO DAILY
06/22/23 12:00
Albuterol Nebs [Ventolin Nebules] 2.5 mg INH R DAILY@1200
Abnormal Lab Results
06/21/23
16:30
RBC 3.60 L 10^6/uL
(4.20-5.40)
Hgb 10.9 L g/dL
(12.0-16.0)
Hct 33.2 L %
(37.0-47.0)
MCHC 32.8 L g/dL
(33.0-37.0)
Absolute Lymphs (auto) 0.7 L 10^3/uL
(1.2-3.4)
Absolute Monos (auto) 0.8 H 10^3/uL
(0.1-0.6)
Lymphocytes % 11.3 L %
(20.5-51.1)
Monocytes % 12.6 H %
(1.7-9.3)
Eosinophils % 6.4 H %
(0-6)
BUN 31 H mg/dl
(7-17)
Glucose 113 H mg/dl
(70-99)
06/21/23 16:30
06/21/23 16:30
Vital Signs
Initial and Last Documented VS:
Initial Vital Signs
Temp Pulse Resp BP Pulse Ox
98.0 F 93 20 156/64 94
06/21/23 15:42 06/21/23 15:42 06/21/23 15:42 06/21/23 15:42 06/21/23 15:42
Last Documented Vital Signs
Temp Pulse Resp BP Pulse Ox
98.8 F 60 12 133/54 93
06/24/23 15:55 06/24/23 20:05 06/24/23 20:05 06/24/23 15:55 06/24/23 20:05
<Christoph Boucher PA-C - Last Filed: 06/24/23 21:46>
MDM/Problems Addressed
Differential Diagnosis Includes:
Patient is an 88-year-old female with past medical history of age-related memory loss, asthma, sleep apnea on CPAP, constipation, hypothyroidism, glaucoma, history of skin and breast cancer, anxiety, and history of chronic lower extremity swelling,
here today for evaluation of approximately 2 weeks of relatively painless bilateral symmetric lower extremity swelling. Overall, patient appears very well. She is mildly hypertensive here. Physical examination described above. Symptom/findings
may be cellulitic in nature versus noninfectious secondary to chronic venous stasis/lymphedema. Low suspicion for DVT given anticoagulation use and bilateral swelling. There is also no reported pain or significant tenderness. Findings may also be
secondary to a heart failure exacerbation. At this time, will obtain workup with screening labs and x-ray of the bilateral distal lower extremities and chest.
06/21/2023 17:40: Screening labs reveal mild anemia with a hemoglobin of 10.9. BUN 31 with a normal creatinine of 0.7. Glucose 113. Bilateral tip/fib x-ray reveals moderate diffuse subcutaneous edema. Chest x-ray negative. There is a normal
lactic acid and BNP level. Case discussed with ED attending, Dr. Preciado, who evaluated patient at bedside. Concern for failure of outpatient antibiotic therapy for cellulitis and therefore will provide IV antibiotics with clindamycin. We will
also provide diuresis with Lasix. Patient will be admitted to medicine. All questions answered.
<Christoph Boucher PA-C - Last Filed: 06/24/23 21:46>
*Critical Care Note
Total Time (30-74mins, 75-104mins- exclusive of procedures): Not Applicable
ED Attending Note
<Christoph Boucher PA-C - Last Filed: 06/24/23 21:46>
-
Portions of this chart may have been created with voice recognition software.� Occasional wrong word or��sound alike� substitutions may have occurred due to the inherent limitations of voice recognition software.
<Thais Preciado MD - Last Filed: 06/21/23 17:27>
ED Attending Note
Patient seen and examined by attending physician: Yes
I performed the substantive portion of visit, reviewed & personally made and approve the management plan that is documented in note by myself or HUGO.: Yes
ED Attending Note:
Patient presents with significant swelling and erythema bilateral lower extremities. Her family reports she has been on Keflex for about a week. Patient appears nontoxic, however, I am worried about persistent bilateral lower extremity cellulitis.
For this, she will need IV antibiotics. In addition, she will likely need IV Lasix. On exam, she is in no respiratory distress with clear breath sounds. She is significant swelling, erythema and warmth of her bilateral lower extremities.
Discharge Plan
Departure
Patient Disposition: Admit
Date of Disposition: 06/21/23
Time of Disposition: 17:44
Admit to: Med/Surg
Admit to doctor: Dr. Lauro Kidd
Presentation/result/management discussed w/ accepting MD/DO: Hospitalist
Patient with high blood pressure during this ER visit?: Yes
Condition: Fair
Covid-19: Not Applicable
Discharge Problem:
Bilateral cellulitis of lower leg
Interventions
Interventions:
*Risk Screen - Suicide Last Done: 06/21/23 15:42
*General Assessment Last Done: 06/21/23 15:42
*Neglect/Abuse Screening Last Done: 06/21/23 15:42
ED- Fall Risk Assessment Last Done: 06/21/23 15:57
*ED COVID-19 Vaccine History Last Done: 06/21/23 21:11
*Nursing Disposition Last Done: 06/21/23 20:43
ED- Cardiac Assessment Last Done: 06/21/23 15:57
ED- Pulmonary Assessment Last Done: 06/21/23 15:57
ED-Skin Assessment Last Done: 06/21/23 15:57
Discharge Date and Time
Discharge Date/Time: 06/21/23 20:49
[2023-06-21 16:49] LABS: % Basophils 0.6 % (0-2); % Eosinophils 6.4 % (0-6); % Immature Granulocytes 0.2 % (0-0.5); % Lymphocytes 11.3 % (20.5-51.1); % Monocytes 12.6 % (1.7-9.3); % Neutrophils 68.9 % (42.2-75.2); Absolute Eosinophils 0.4 10^3/uL (0-0.7); Absolute Lymphocytes 0.7 10^3/uL (1.2-3.4); Absolute Monocytes 0.8 10^3/uL (0.1-0.6); Absolute Neutrophils 4.4 10^3/uL (1.4-6.5); Hematocrit 33.2 % (37.0-47.0); Hemoglobin 10.9 g/dL (12.0-16.0); Mean Corp Hgb Conc. 32.8 g/dL (33.0-37.0); Mean Corpuscular Hgb 30.3 pg (27.0-31.0); Mean Corpuscular Volume 92.2 fL (81.0-99.0); Mean Platelet Volume 9.4 fL (7.4-10.4); Nucleated Red Blood Cells % 0 %; Platelet Count 211 10^3/uL (130-400); Red Cell Dist. Width 14.1 % (11.5-14.5); White Blood Cell Count 6.4 10^3/uL (4.8-10.8)
[2023-06-21 17:03] LABS: Lactic Acid 1.3 mmol/L (0.7-2.0)
[2023-06-21 17:08] LABS: Blood Urea Nitrogen 31 mg/dl (7-17); Calcium 9.1 mg/dl (8.4-10.2); Carbon Dioxide 28 mmol/L (22-30); Chloride 101 mmol/L (98-107); Glucose 113 mg/dl (70-99); Potassium 4.2 mmol/L (3.5-5.1); Sodium 137 mmol/L (135-145); eGFR > 60.00
[2023-06-21 17:12] LABS: NT-proBNP 183 pg/ml
[2023-06-21 17:49] VITALS: BMI 41.0
[2023-06-21] MEDS: LASIX 40 MG IV (17:53)
[2023-06-21] MEDS: CLEOCIN 50 IV (18:36)
--- NOTE | 2023-06-21 19:37 | HPS.HSE ---
Addendum entered and electronically signed by Manasa Ying MD 06/21/23 20:13:
pt seen and examined independently--Agree with plan as set forth by Dr. Gonzalez
GENERAL: well developed, well nourished, obese female in no apparent distress
HEENT: NC/AT
HEART: regular rate and rhythm, +S1, +S2
LUNGS : faint wheezes bilaterally throughout
ABDOM: soft, nontender, nondistended, + bowel sounds
EXT: no cyanosis, clubbing-- bilateral redness and warm to touch from knees down with 4+ pitting edema--smaller redder 'blisters' lower legs
NEUROLOGIC: tremor to left arm
: purewick in place with clear yellow urine
Bilateral lower extremity cellulitis --likely caused by lymphedema--doubt CHF (no h/o and pro BNP 183)--check US to r/o DVT (doubt as pt on Eliquis)--if neg, would use compression (cornelius wraps) and elevation--hold further lasix--agree with checking
ECHO--start IV vanco to cover for MRSA (pt hospitalized and in [place])--stop IV clinda--consult ID
Ambulatory dysfunction--due to bilateral lower extremity swelling--PT/OT--pt not interested in rehab, would prefer to do therapy at home
Left glenohumeral arthritis--Continue hydrocodone-acetaminophen as needed
Urinary incontinence--bladder scan protocol--Continue mirabegron
Essential Hypertension--Continue losartan
Paroxysmal atrial fibrillation--cont eliquis
Mild intermittent asthma--With wheezes on examination--Continue albuterol and Wixela
Anxiety--Continue escitalopram
Constipation--was in ED for fecal impaction--continue polyethylene glycol
DVT prophylaxis-on Eliquis
Code status -- FULL CODE
Original Note:
Family Physician
-
Family Physician: Carolina Davis
Chief Complaint
-
IV vancomycin
ID consult
Doppler lower extremity ultrasound
Echocardiogram
History of Present Illness
88-year-old female with past medical history of paroxysmal A-fib, pacemaker placement 2019 (sickness sinus syndrome.), hypertension, right breast cancer s/p mastectomy, mild intermittent asthma, hypothyroidism, frequent falls, arthritis of the
glenohumeral joint presenting to the ED with outpatient failure of antibiotics for symmetrical bilateral lower leg swelling. Patient was started on Keflex on 06/[address] Clare Davis, with no improvement of symptoms. Lasix was also
increased to 40 mg PO. Patient is in the room with her eldest son, Stefan. Patient reports of having redness, swelling and ambulatory dysfunction for the past 3 weeks. She uses a walker for ambulation which has decreased. She states that she
takes an hour to go to the restroom from the bedroom. Patient reports of wheezing. She uses rescue inhaler and Wixela. Patient denies shortness of breath, chest pain. Patient has a history of atrial fibrillation for which she takes Eliquis
which she has been on for for more than 20 years. Patient has a history of CAD, denies heart failure in the past. She sees a assistant site manager Dr. Montes. Patient was seen in the ER on 05/28 for severe constipation which was disimpacted with enema
and she was sent home on MiraLAX. During that visit she had a fall while she was getting out of the bed, that was her most recent fall. Denies fever, chills.
Medical History
Past Medical History
Past Medical History: Reports Arrhythmia, Asthma, CAD, Cancer (Right breast, ), HTN and Hypothyroidism
Additional Past Medical History:
Sleep apnea, urinary incontinence, constipation
Past Surgical History: Reports Appendectomy, Gynocological (Hysterectomy) and Orthopedic (Bilateral knee replacement, spinal stenosis)
Additional Past Surgical History:
Pacemaker 2019, right breast mastectomy
Social History
Tobacco: Non-smoker
Alcohol: None
Drug: None
Personal: Single
Living: Alone
Employment: Retired
Family History
Family History: Not pertinent
Allergies / Home Medications
Allergies reflects when Allergies were last updated in [facility].
Home Medications with original date entered in [facility]
Allergy/Medication List:
No known allergies
Review of Systems
-
History Source: Patient and Family
Constitutional: Reports See HPI
Respiratory: Reports See HPI
Physical Exam
Vital Signs
Vital Signs
Temp Pulse Resp BP Pulse Ox
98.0 F 93 20 156/64 94
06/21/23 15:42 06/21/23 15:42 06/21/23 15:42 06/21/23 15:42 06/21/23 15:42
Physical Exam
General: Conversant and Morbidly Obese
HEENT: NormoCephalic
Respiratory: Clear and Wheezes; No Rales, Rhonchi or Crackles
Cardiac: S1/S2 and Regular Rhythm
GI: Soft and Non Distended
Musculoskeletal: Edema, Left Lower Extremity (3+ pitting) and Edema, Right Lower Extremity (3+ pitting)
Skin: Warm (Erythematous, purplish discoloration starting below the knee up to the feet bilaterally)
Neuro: AO x 3
Laboratory Results
-
06/21/23 16:30
06/21/23 16:30
Laboratory Results
Lactic Acid 1.3 mmol/L (0.7-2.0) 06/21/23 16:30
Data Reviewed
-
Medical Tests (Nuc Med, Echo, EKG etc): Report Reviewed by me and Discussed with Physician
Impression/Plan
-
IMPRESSION:
Bilateral lower extremity cellulitis versus lymphedema
Ambulatory dysfunction
Left glenohumeral arthritis
Urinary incontinence
Hypertension
Paroxysmal atrial fibrillation
Mild intermittent asthma
Anxiety
Constipation
PLAN:
Bilateral lower extremity cellulitis versus lymphedema
Suspect #1 PAD #2 cellulitis #3 heart failure
Labs not indicated for heart failure. Repeat echo
Lower leg cellulitis left lower lateral however this patient has bilateral lower extremity swelling
We will start with IV vancomycin, discontinue clindamycin
order MRSA screen. If MRSA negative then was started on Ancef
Doppler lower extremity ultrasound to rule out PAD
If if no clot then we will do Cornelius wrap
Consult ID
Ambulatory dysfunction-due to bilateral lower extremity swelling
PT/OT
Left glenohumeral arthritis
Continue hydrocodone-acetaminophen as needed
Urinary incontinence
Order bladder scan
Continue mirabegron
Hypertension
Continue losartan
Proximal atrial fibrillation
No recent events
Continue Eliquis
Mild intermittent asthma
With wheezes on examination
Continue albuterol and Wixela
Anxiety
Continue escitalopram
Constipation
continue polyethylene glycol
DVT prophylaxis-on Eliquis
--- NOTE | 2023-06-21 20:05 | W.PN.UPDATE ---
Update Note
Progress Note Update
Some errors while dictating
corretion- lower extremity cellulitis is usually unilateraland not b/l. However on exam LE looks infected
--- NOTE | 2023-06-21 20:21 | W.PN.UPDATE ---
Update Note
Progress Note Update
I talked to Dr Kurtz on TT, she advised to switch to cefazolin 2gm q8 from vancomycin. Appreciate ID input.
[2023-06-21 20:42] VITALS: BP 137/54; BMI 39.9
[2023-06-21 21:26] VITALS: BMI 39.9
[2023-06-21] MEDS: DETROL LA 2 MG PO (21:30)
[2023-06-21] MEDS: CLARITIN 10 MG PO (21:30)
[2023-06-21] MEDS: ELIQUIS 5 MG PO (21:30)
[2023-06-21] MEDS: XALATAN OPHTHALMIC SOLUTION 1 DROP BOTH EYES (21:30)
[2023-06-21] MEDS: NORCO 7.5/325 1 TABLET PO (21:39)
--- NOTE | 2023-06-21 22:00 | PTCARENOTE ---
Patient arrived from the ED via stretcher accompanied by son. Patient ambulated/pivoted onto the bed with a walker and max assistance. Patient very weak, VSS. Complaining of left shoulder pain due to arthritis, given pain medication see MAR. Patient
oriented to the room. Educated on medications and reporting care concerns. Call carson is within reach.
[2023-06-21] MEDS: ADVAIR HFA 115/21 MCG INHALER INH (22:31)
[2023-06-21] MEDS: ANCEF 10 IV (23:14)
[2023-06-21 23:41] VITALS: BP 117/55
[2023-06-22] MEDS: SYNTHROID 50 MCG PO (04:49)
[2023-06-22] MEDS: ANCEF 10 IV ×3 (05:02→21:30)
[2023-06-22 05:33] VITALS: BMI 40.3
[2023-06-22] MEDS: NORCO 7.5/325 1 TABLET PO ×3 (06:29→23:25)
[2023-06-22] MEDS: TYLENOL 650 MG PO ×2 (07:12→22:23)
[2023-06-22] MEDS: ADVAIR HFA 115/21 MCG INHALER 2 PUFF INH ×2 (07:38→19:38)
[2023-06-22 08:00] VITALS: BP 127/51
[2023-06-22 08:11] LABS: Blood Urea Nitrogen 28 mg/dl (7-17); Calcium 8.8 mg/dl (8.4-10.2); Carbon Dioxide 26 mmol/L (22-30); Chloride 103 mmol/L (98-107); Estimated Creatinine Clearance 70 ml/min; Glucose 106 mg/dl (70-99); Potassium 3.8 mmol/L (3.5-5.1); Sodium 136 mmol/L (135-145); eGFR > 60.00
[2023-06-22 08:19] LABS: % Basophils 0.7 % (0-2); % Eosinophils 7.5 % (0-6); % Immature Granulocytes 0.3 % (0-0.5); % Monocytes 12.9 % (1.7-9.3); % Neutrophils 63.6 % (42.2-75.2); Absolute Eosinophils 0.4 10^3/uL (0-0.7); Absolute Lymphocytes 0.9 10^3/uL (1.2-3.4); Absolute Monocytes 0.7 10^3/uL (0.1-0.6); Absolute Neutrophils 3.7 10^3/uL (1.4-6.5); Hematocrit 31.9 % (37.0-47.0); Hemoglobin 11.1 g/dL (12.0-16.0); Mean Corp Hgb Conc. 34.8 g/dL (33.0-37.0); Mean Corpuscular Hgb 30.9 pg (27.0-31.0); Mean Corpuscular Volume 88.9 fL (81.0-99.0); Mean Platelet Volume 10.1 fL (7.4-10.4); Nucleated Red Blood Cells % 0 %; Platelet Count 230 10^3/uL (130-400); Red Blood Cell Count 3.59 10^6/uL (4.20-5.40); Red Cell Dist. Width 14.2 % (11.5-14.5); White Blood Cell Count 5.7 10^3/uL (4.8-10.8)
--- NOTE | 2023-06-22 08:43 | W.PN.HOSP.TC ---
Addendum entered and electronically signed by Manasa Ying MD 06/22/23 13:08:
pt seen and examined independently--Agree with plan as set forth by Dr. Gonzalez
GENERAL: well developed, well nourished, obese female in no apparent distress
HEENT: NC/AT
HEART: regular rate and rhythm, +S1, +S2
LUNGS : faint wheezes bilaterally throughout
ABDOM: soft, nontender, nondistended, + bowel sounds
EXT: no cyanosis, clubbing-- bilateral redness and warm to touch from knees down--smaller redder 'blisters' lower legs--edema less
NEUROLOGIC: tremor to left arm
: purewick in place with clear yellow urine
Bilateral lower extremity cellulitis --likely caused by lymphedema--doubt CHF (no h/o and pro BNP 183)-- US without PAD, doubt DVT (as pt on Eliquis)--would use compression (cornelius wraps) and elevation--hold further lasix--ECHO pending--await ID--cont
ancef
Ambulatory dysfunction--due to bilateral lower extremity swelling--PT/OT--pt not interested in rehab, would prefer to do therapy at home
Left glenohumeral arthritis--Continue hydrocodone-acetaminophen as needed
Urinary incontinence--bladder scan protocol--Continue mirabegron
Essential Hypertension--Continue losartan
Paroxysmal atrial fibrillation--cont eliquis
Mild intermittent asthma--With wheezes on examination--Continue albuterol and Wixela
Anxiety--Continue escitalopram
Constipation--was in ED for fecal impaction--continue polyethylene glycol
DVT prophylaxis-on Eliquis
Code status -- FULL CODE
Original Note:
Today's Communication/Plan
-
Improvement with IV cefazolin continue antibiotics,
Assessment / Plan
Assessment / Plan
IMPRESSION:
Bilateral lower extremity cellulitis versus lymphedema
Ambulatory dysfunction
Left glenohumeral arthritis
Urinary incontinence
Hypertension
Paroxysmal atrial fibrillation
Mild intermittent asthma
Anxiety
Constipation
PLAN:
Nonpurulent bilateral lower extremity cellulitis likely due to lymphedema
Suspect #1 DVT #2 PAD #3 cellulitis #4 heart failure
Labs not indicated for heart failure. Repeat echo
Lower extremity cellulitis is usually unilateral and not bilateral
However on exam they looked infected---improvement
Continue cefazolin IV dose adjust renally
MRSA screen, blood cultures pending.
Doppler lower extremity -negative for clot
Cornelius wrap
Consult ID
Ambulatory dysfunction-due to bilateral lower extremity swelling
PT/OT
Left glenohumeral arthritis
Continue hydrocodone-acetaminophen as needed
Urinary incontinence
Bladder scan did not show retention of urine but some incontinence
Continue mirabegron
Hypertension
Continue losartan
Proximal atrial fibrillation
No recent events
Continue Eliquis
Mild intermittent asthma
With wheezes on examination
Continue albuterol and Wixela
Anxiety
Continue escitalopram
Constipation
continue polyethylene glycol
DVT prophylaxis-on Eliquis
Anticipated Discharge: 24 - 48 hours
Subjective/Interval History
-
Date of Service: June 22, 2023
Patient complained of left shoulder pain with history of left glenohumeral arthritis. Hydrocodone -acetaminophen and Tylenol helped her pain
Objective Data
-
Labs:
Laboratory Results
06/22/23
07:25
WBC 5.7
Hgb 11.1 L
Hct 31.9 L
Plt Count 230
Sodium 136
Potassium 3.8
Chloride 103
Carbon Dioxide 26
BUN 28 H
Creatinine 0.6
Glucose 106 H
Calcium 8.8
Vital Signs:
Vital Signs
Temp Pulse Resp BP Pulse Ox
98.4 F 61 18 127/51 91
06/22/23 08:00 06/22/23 08:00 06/22/23 08:00 06/22/23 08:00 06/22/23 08:00
I&O
06/21/23 06/22/23 06/23/23
06:59 06:59 06:59
Intake Total 720 / 720
Output Total 325 / 325
Balance 395 / 395
Review of Systems
-
All other systems: Reviewed and negative (Except mentioned)
Musculoskeletal: Reports Other (Left shoulder pain)
Physical Exam
-
General: Comfortable and Conversant
HEENT: Normocephalic and Atraumatic
Respiratory: Clear to Auscultation and Wheezes
Cardiac: Regular Rhythm and S1/S2
GI: Soft and Nontender
Musculoskeletal: Other (Improvement in bilateral lower extremity swelling and erythema)
Skin: Other (Purplish discoloration of the skin due to venous stasis)
Data Reviewed
-
Medical Tests (Nuc Med, Echo etc): Report Reviewed by me and Discussed with Physician
Labs: Labs Reviewed by me and Discussed with Physician
[2023-06-22] MEDS: LEXAPRO 10 MG PO (08:54)
[2023-06-22] MEDS: ELIQUIS 5 MG PO ×2 (08:54→19:52)
[2023-06-22] MEDS: COZAAR 50 MG PO (08:54)
[2023-06-22] MEDS: VENTOLIN NEBULES INH (12:56)
--- NOTE | 2023-06-22 13:41 | CON.ID ---
Consultation
-
Date/Time Consultation Requested: 06/21/23 20:43
Date/Time Consultation Performed: 06/22/23 14:47
Requesting Provider: Dr Gonzalez
Performing Provider: Dr León
Reason for Consultation: cellulitis
Chief Complaint / Past History
Chief Complaint
bilateral cellulitis
History of Present Illness
Ms Galvez is an 88 year old female with history of PAF, class III obesity who presented here last night for symmetrical bilateral lower extremity swelling, redness, difficulty ambulating. At baseline she walks with a walker. Of note was seen by
PCP 06/14 with lasix dose increased to 40 mg PO qday, also given keflex. No fevers, chills, shortness of breath, chest pain. No history of heart failure. Reports pruritus with the legs.
Since arrival here she has been afebrile, bp stable, wbc count normal 6.4 now 5.7, no left shift, eos are present and AEC <500, cr 0.6, bnp 180, JENNYFER done: no focal stenosis appreciated BL, 06/20 tib-fib xray: edema, blood cultures x2 in progress, mrsa
screen in progress, echo today: normal. She feels that the legs are less swollen an warm today
Past History
Additional Past Medical History:
Reports Arrhythmia, Asthma, CAD, Cancer (Right breast, ), HTN and Hypothyroidism
Additional Past Surgical History:
Appendectomy, Gynocological (Hysterectomy) and Orthopedic (Bilateral knee replacement, spinal stenosis)
Allergy History:
adhesive Allergy (Verified 06/21/23 15:45)
reddness
adhesive tape Allergy (Verified 06/21/23 15:45)
SKIN IRRITATION
Medications Reviewed: Yes
Social History
Tobacco: Non-Smoker
Alcohol: None
Drug: None
Family History
Family History: Not Pertinent
Review of Systems
Review of Systems
General: Negative Fever or Chills
All systems: All other systems were reviewed and were negative
Vital Signs
Temp Pulse Resp BP Pulse Ox
98.4 F 61 18 127/51 91
06/22/23 08:00 06/22/23 08:54 06/22/23 08:00 06/22/23 08:54 06/22/23 08:00
Physical Exam
Physical Exam
Constitutional: No Acute Distress and Obese
Cardiovascular: Regular Rate and S1/S2; Negative Murmur or Rub
Pulmonary: Clear and Symmetric; Negative Wheezes, Rales or Rhonchi
Gastrointestinal: Soft, Non Tender, Non Distended and Normal Bowel Sounds
Skin: Warm, Dry and Rash (minimal erythema bilaterally; legs are becoming more wrinkled, elevated in chair with fan wraps in place on my exam); Negative Jaundice
Neurological: Awake
Lab / Diagnostic Study Results
06/22/23 07:25
06/22/23 07:25
Abs Immat Gran (auto) 0.0 10^3/uL (0-0.05) 06/22/23 07:25
Absolute Neuts (auto) 3.7 10^3/uL (1.4-6.5) 06/22/23 07:25
Absolute Lymphs (auto) 0.9 10^3/uL (1.2-3.4) L 06/22/23 07:25
Absolute Monos (auto) 0.7 10^3/uL (0.1-0.6) H 06/22/23 07:25
Absolute Basos (auto) 0.0 10^3/uL (0-0.2) 06/22/23 07:25
Immature Gran % 0.3 % (0-0.5) 06/22/23 07:25
Neutrophils % 63.6 % (42.2-75.2) 06/22/23 07:25
Lymphocytes % 15.0 % (20.5-51.1) L 06/22/23 07:25
Monocytes % 12.9 % (1.7-9.3) H 06/22/23 07:25
Eosinophils % 7.5 % (0-6) H 06/22/23 07:25
Basophils % 0.7 % (0-2) 06/22/23 07:25
Lactic Acid 1.3 mmol/L (0.7-2.0) 06/21/23 16:30
Microbiology Results
Micro:
06/22/23 05:50 MRSA Screen - Pending
Nose
06/21/23 16:30 Blood Culture - Pending
Blood/Venous
06/21/23 16:30 Blood Culture - Pending
Blood/Venous
Assessment / Plan
Nonpurulent Cellulitis vs Venous Stasis dermatitis
Bilateral knee replacements
Lymphedema
Class III Obesity
- bilateral cellulitis is a bit unusual, venous stasis dermatitis a consideration, suspect lymphedema may be chronic
- compression/elevation as tolerated
- ideally feet elevated above the heart while awake; if dyspnea, put the legs down. Reports no orthopnea, just difficulty getting out of bed
- ambulatory dysfunction may improve with diuresis and mobilization of fluid
- agree with diuresis
- agree with cefazolin at this time favor short course
- note 30% higher bioavailability of IV betalactams compared to oral. Also note with BMI >40 limited data on drug dosing
- outside of necrotizing fasciitis, occasional odontogenic infection, limited role for clindamycin. Similar to other institutions, majority of MRSA isolates here are not sensitive to the drug. Also note high risk of C difficile.
- recommended to stop vancomycin last night as acute, nonpurulent infections mostly caused by strep.
- echo reviewed - note normal EF, normal bnp; renal function is normal
- JENNYFER not revealing
- follow clinically
Care Review
Plan reviewed with: Physician (Dr Gonzalez)
[2023-06-22 14:00] VITALS: BP 115/56; PULSE 61; O2SAT 92
[2023-06-22 15:14] VITALS: BP 131/51
--- NOTE | 2023-06-22 16:29 | CM ---
vehicle leasing and rental manager reviewed patient's chart and met with patient and patient lives alone with patient's son living nearby. Patient lives in a one story home, patient sleeps in a recliner, has rollator, caregivers 7 days a week for 2 hours per day. Patient
also has [facility] visiting nurses. Physical therapy are recommending skilled and patient's son states patient will not agree to skilled placement.
Plan; To home with [facility] visiting nurses and caregivers. referral sent to [facility].
[facility]
[phone]
[phone]
[2023-06-22] MEDS: HIPREX 1 GRAM PO (19:52)
[2023-06-22] MEDS: VITAMIN D3 (cholecalciferol) 25 MCG PO (19:52)
[2023-06-22] MEDS: DETROL LA 2 MG PO (19:52)
[2023-06-22] MEDS: XALATAN OPHTHALMIC SOLUTION 1 DROP BOTH EYES (19:52)
[2023-06-22] MEDS: CLARITIN 10 MG PO (19:52)
[2023-06-22 23:00] VITALS: BP 118/67
[2023-06-23] MEDS: TYLENOL 650 MG PO ×3 (04:30→19:49)
[2023-06-23] MEDS: SYNTHROID 50 MCG PO (04:30)
[2023-06-23] MEDS: ANCEF 10 IV ×2 (05:25→13:55)
[2023-06-23] MEDS: NORCO 7.5/325 1 TABLET PO ×2 (05:25→12:01)
[2023-06-23 06:00] VITALS: BMI 40.1
[2023-06-23] MEDS: ADVAIR HFA 115/21 MCG INHALER 2 PUFF INH ×2 (07:47→19:58)
[2023-06-23 07:48] LABS: % Basophils 0.6 % (0-2); % Eosinophils 8.2 % (0-6); % Immature Granulocytes 0.2 % (0-0.5); % Lymphocytes 17.3 % (20.5-51.1); % Monocytes 11.4 % (1.7-9.3); % Neutrophils 62.3 % (42.2-75.2); Absolute Eosinophils 0.4 10^3/uL (0-0.7); Absolute Lymphocytes 0.9 10^3/uL (1.2-3.4); Absolute Monocytes 0.6 10^3/uL (0.1-0.6); Absolute Neutrophils 3.1 10^3/uL (1.4-6.5); Hematocrit 30.5 % (37.0-47.0); Hemoglobin 10.4 g/dL (12.0-16.0); Mean Corp Hgb Conc. 34.1 g/dL (33.0-37.0); Mean Corpuscular Hgb 30.4 pg (27.0-31.0); Mean Corpuscular Volume 89.2 fL (81.0-99.0); Mean Platelet Volume 9.2 fL (7.4-10.4); Nucleated Red Blood Cells % 0 %; Platelet Count 209 10^3/uL (130-400); Red Blood Cell Count 3.42 10^6/uL (4.20-5.40); Red Cell Dist. Width 14.2 % (11.5-14.5)
[2023-06-23 07:55] VITALS: BP 126/59
[2023-06-23 08:05] LABS: Blood Urea Nitrogen 23 mg/dl (7-17); Calcium 8.5 mg/dl (8.4-10.2); Carbon Dioxide 28 mmol/L (22-30); Chloride 103 mmol/L (98-107); Estimated Creatinine Clearance 70 ml/min; Glucose 104 mg/dl (70-99); Sodium 134 mmol/L (135-145); eGFR > 60.00
[2023-06-23] MEDS: HIPREX 1 GRAM PO ×2 (08:45→19:49)
[2023-06-23] MEDS: LEXAPRO 10 MG PO (08:45)
[2023-06-23] MEDS: ELIQUIS 5 MG PO ×2 (08:45→19:49)
[2023-06-23] MEDS: COZAAR 50 MG PO (08:45)
[2023-06-23] MEDS: VENTOLIN NEBULES 2.5 MG INH (11:06)
--- NOTE | 2023-06-23 12:57 | W.PN.ID1 ---
Date of Service
Date of Service: June 23, 2023
Today's Communication
venous stasis dermatitis - unlikely cellulitis; note bilateral cellulitis is quite unusual
compression/elevation
would consider another dose of lasix - still with 1+ edema, suspected lymphedema
stop antibiotics and observe clinically
follow up with lymphedema clinic
Assessment / Plan
Venous Stasis dermatitis
Bilateral knee replacements
Lymphedema - chronic
Class III Obesity
- most likely venous stasis dermatitis - unlikely cellulitis; note bilateral cellulitis is quite unusual. erythema has resolved very rapidly with elevation and compression - was most likely venous stasis dermatitis, stop antibiotics follow clinically
- compression/elevation as tolerated
- trial of SCDs
- consider another dose of lasix
- if she is able to mobilize the fluid in the legs she may have less difficulties with walking
- referral to lymphedema clinic
- follow clinically
Chief Complaint
-: Cellulitis
Subjective / Review of Systems
afebrile
bp stable
without leukocytosis
cr stable
blood cultures no growth to date
Vital Signs / Physical Exam
Vital Signs
Vital Signs
Temp Pulse Resp BP Pulse Ox
97.9 F 73 15 126/59 91
06/23/23 07:55 06/23/23 11:10 06/23/23 11:10 06/23/23 07:55 06/23/23 11:10
Physical Exam
Constitutional: No Acute Distress
Cardiovascular: Regular Rate and S1/S2; Negative Murmur or Rub
Pulmonary: Clear and Symmetric; Negative Wheezes or Rales
Gastrointestinal: Soft, Non Tender, Non Distended and Normal Bowel Sounds
Extremities: Other (1+ edema bilaterally; erythema has resolved, wrinkles on the bilateral legs indicating diuresis)
Skin: Warm and Dry; Negative Rash or Jaundice
Objective Data
Lab Data
Lab Results
06/23/23 07:33
06/23/23 07:33
Estimated Creat Clear 70 ml/min 06/23/23 07:33
Lactic Acid 1.3 mmol/L (0.7-2.0) 06/21/23 16:30
Most recent labs reviewed.
Micro Results:
06/22/23 05:50 MRSA Screen - Final
Nose No Methicillin Resistant Staphylococcus aureus isolated.
06/21/23 16:30 Blood Culture - Preliminary
Blood/Venous No Growth in 24 hours- Final report to follow
06/21/23 16:30 Blood Culture - Preliminary
Blood/Venous No Growth in 24 hours- Final report to follow
[2023-06-23 15:26] VITALS: BP 114/47
[2023-06-23 15:30] VITALS: BP 123/49; PULSE 62
--- NOTE | 2023-06-23 15:50 | W.PN.HOSP.TC ---
Addendum entered and electronically signed by Manasa Ying MD 06/23/23 16:14:
pt seen and examined independently--Agree with plan as set forth by Dr. Gonzalez
GENERAL: well developed, well nourished, obese female in no apparent distress
HEENT: NC/AT
HEART: regular rate and rhythm, +S1, +S2
LUNGS : CTA bilaterally
ABDOM: soft, nontender, nondistended, + bowel sounds
EXT: no cyanosis, clubbing-- bilateral redness improved and swelling down
NEUROLOGIC: tremor to left arm
Bilateral lower extremity cellulitis (unusual)--likely caused by lymphedema vs venous stasis changes--doubt CHF (no h/o and pro BNP 183)-- US without PAD, doubt DVT (as pt on Eliquis)--would use compression (cornelius wraps, pt did not tolerate) and
elevation--resume outpt lasix--ECHO WNL--apprec ID-- ancef stopped
Ambulatory dysfunction--due to bilateral lower extremity swelling--PT/OT--pt not interested in rehab, would prefer to do therapy at home
Left glenohumeral arthritis--Continue hydrocodone-acetaminophen as needed
Urinary incontinence--bladder scan protocol--Continue mirabegron
Essential Hypertension--Continue losartan
Paroxysmal atrial fibrillation--cont eliquis
Mild intermittent asthma--With wheezes on examination--resolved--Continue albuterol and Wixela--likely cause of peripheral eosinophilia
Anxiety--Continue escitalopram
Constipation----continue polyethylene glycol
DVT prophylaxis-on Eliquis
Code status -- FULL CODE
hopeful d/c tomorrow
Original Note:
Today's Communication/Plan
-
SCD, stop antibiotics observe clinically possible discharge tomorrow only if the patient is okay with PT/OT
Assessment / Plan
Assessment / Plan
IMPRESSION:
Bilateral lower extremity cellulitis versus lymphedema
Peripheral eosinophilia
Ambulatory dysfunction
Left glenohumeral arthritis
Urinary incontinence
Hypertension
Paroxysmal atrial fibrillation
Mild intermittent asthma
Anxiety
Constipation
PLAN:
Nonpurulent bilateral lower extremity cellulitis likely due to lymphedema
Suspect #1 DVT #2 PAD #3 cellulitis #4 heart failure
More likely venous stasis dermatitis as bilateral cellulitis is unusual
Labs not indicated for heart failure. LVEF 55 to 60%
Stop antibiotics for now per ID and observe clinically
Cornelius wrap's are uncomfortable for the patient
SCD for compression
1/2 blood culture negative, MRSA negative
Doppler lower extremity -negative for clot
Consult ID
Peripheral eosinophilia
Causes #1 neoplasm #2 allergies #3 asthma #4 connective tissue disorder #5 parasitic infection
Allergies versus uncontrolled asthma could potentially be the reason for this patient, we cannot rule out neoplasm though
Allergies could potentially contribute to increased eosinophil count
Wheezes not heard on examination
Ambulatory dysfunction-due to bilateral lower extremity swelling
PT/OT, possible discharge if patient is okay with PT
Restart Lasix 40 mg p.o. as it will help to decrease swelling and also improve ambulation
Left glenohumeral arthritis
Continue hydrocodone-acetaminophen as needed
Urinary incontinence
Bladder scan did not show retention of urine but some incontinence
Continue mirabegron
Hypertension
Continue losartan
Proximal atrial fibrillation
No recent events
Continue Eliquis
Mild intermittent asthma
With wheezes on examination
Continue albuterol and Wixela
Anxiety
Continue escitalopram
Constipation
continue polyethylene glycol
DVT prophylaxis-on Eliquis
Anticipated Discharge: Within 24 hours
Subjective/Interval History
-
Date of Service: June 23, 2023
Patient denies itching in the legs today. Patient had 1 episode of chronic itching on 06/21 for which Benadryl was given which improved her symptoms.
Objective Data
-
Labs:
Laboratory Results
06/23/23
07:33
WBC 5.0
Hgb 10.4 L
Hct 30.5 L
Plt Count 209
Sodium 134 L
Potassium 4.0
Chloride 103
Carbon Dioxide 28
BUN 23 H
Creatinine 0.6
Glucose 104 H
Calcium 8.5
Vital Signs:
Vital Signs
Temp Pulse Resp BP Pulse Ox
98.7 F 61 18 114/47 96
06/23/23 15:26 06/23/23 15:26 06/23/23 15:26 06/23/23 15:26 06/23/23 15:26
I&O
06/22/23 06/23/23 06/24/23
06:59 06:59 06:59
Intake Total 720 / 720 1680 / 1680
Output Total 325 / 325 1250 / 1250
Balance 395 / 395 430 / 430
Review of Systems
-
History Source: Patient
All other systems: Reviewed and negative
Physical Exam
-
General: Comfortable and Conversant
HEENT: Normocephalic and Atraumatic
Respiratory: Clear to Auscultation
Cardiac: Regular Rhythm, S1/S2 and Murmur (Mechanical valve click)
GI: Soft, Nontender and Nondistended
Musculoskeletal: Other (Swelling and erythema is improving)
Neuro: AO x 3
Psych: Calm
Data Reviewed
-
Medical Tests (Nuc Med, Echo etc): Report Reviewed by me and Discussed with Physician
Labs: Labs Reviewed by me and Discussed with Physician
--- NOTE | 2023-06-23 16:12 | CM ---
met with patient at bedside.she was seen by id-monitor off abx.bl le enous stasis dermatitis,le dopplers negative for dvt.,restart po lasix.
spoke with patient today about choices for short term snf.patient does not want to go to rehab but will speak with her family to determine whether she should go to rehab as rec by therapy.Plan dc to snf.will obtain snf choices from family.
[2023-06-23] MEDS: LASIX 40 MG PO (16:22)
[2023-06-23] MEDS: VITAMIN D3 (cholecalciferol) 25 MCG PO (19:49)
[2023-06-23] MEDS: DETROL LA 2 MG PO (19:49)
[2023-06-23] MEDS: XALATAN OPHTHALMIC SOLUTION 1 DROP BOTH EYES (19:49)
[2023-06-23] MEDS: CLARITIN 10 MG PO (19:49)
[2023-06-23] MEDS: ANESTHETIC LOZENGE 1 LOZENGE PO (21:07)
[2023-06-23 23:28] VITALS: BP 127/55
[2023-06-24] MEDS: ANESTHETIC LOZENGE 1 LOZENGE PO (05:44)
[2023-06-24] MEDS: SYNTHROID 50 MCG PO (05:44)
[2023-06-24 06:00] VITALS: BMI 39.4
[2023-06-24 06:55] LABS: % Basophils 0.9 % (0-2); % Eosinophils 7.9 % (0-6); % Immature Granulocytes 0.4 % (0-0.5); % Lymphocytes 16.6 % (20.5-51.1); % Monocytes 12.1 % (1.7-9.3); % Neutrophils 62.1 % (42.2-75.2); Absolute Basophils 0.1 10^3/uL (0-0.2); Absolute Eosinophils 0.4 10^3/uL (0-0.7); Absolute Lymphocytes 0.9 10^3/uL (1.2-3.4); Absolute Monocytes 0.7 10^3/uL (0.1-0.6); Absolute Neutrophils 3.5 10^3/uL (1.4-6.5); Hematocrit 30.4 % (37.0-47.0); Hemoglobin 10.5 g/dL (12.0-16.0); Mean Corp Hgb Conc. 34.5 g/dL (33.0-37.0); Mean Corpuscular Hgb 30.7 pg (27.0-31.0); Mean Corpuscular Volume 88.9 fL (81.0-99.0); Mean Platelet Volume 9.5 fL (7.4-10.4); Nucleated Red Blood Cells % 0 %; Platelet Count 216 10^3/uL (130-400); Red Blood Cell Count 3.42 10^6/uL (4.20-5.40); Red Cell Dist. Width 14.1 % (11.5-14.5); White Blood Cell Count 5.6 10^3/uL (4.8-10.8)
[2023-06-24 07:55] VITALS: BP 141/55
[2023-06-24 08:06] LABS: Blood Urea Nitrogen 21 mg/dl (7-17); Calcium 8.8 mg/dl (8.4-10.2); Carbon Dioxide 26 mmol/L (22-30); Chloride 104 mmol/L (98-107); Estimated Creatinine Clearance 69 ml/min; Glucose 109 mg/dl (70-99); Magnesium 2.1 mg/dl (1.6-2.3); Potassium 4.1 mmol/L (3.5-5.1); Sodium 135 mmol/L (135-145); eGFR > 60.00
--- NOTE | 2023-06-24 08:19 | W.PN.HOSP.TC ---
Addendum entered and electronically signed by Manasa Ying MD 06/24/23 17:48:
pt seen and examined independently--Agree with plan as set forth by Dr. Gonzalez
GENERAL: well developed, well nourished, obese female in no apparent distress
HEENT: NC/AT
HEART: regular rate and rhythm, +S1, +S2
LUNGS : CTA bilaterally
ABDOM: soft, nontender, nondistended, + bowel sounds
EXT: no cyanosis, clubbing-- bilateral redness improved and swelling down
NEUROLOGIC: tremor to left arm
Bilateral lower extremity cellulitis (unusual)--likely venous stasis changes caused by lymphedema--doubt CHF (no h/o and pro BNP 183)-- US without PAD, doubt DVT (as pt on Eliquis)--would use compression (fan wraps, pt did not tolerate) and
elevation--resume outpt lasix--ECHO WNL--apprec ID-- ancef stopped, no abx at d/c
Ambulatory dysfunction--due to bilateral lower extremity swelling--PT/OT--pt not interested in rehab, would prefer to do therapy at home--did not go well when son arrived to hop picker pt--now going to SNF (better choice)
Left glenohumeral arthritis--Continue hydrocodone-acetaminophen as needed
Urinary incontinence--bladder scan protocol--Continue mirabegron
Essential Hypertension--Continue losartan
Paroxysmal atrial fibrillation--cont eliquis
Mild intermittent asthma--With wheezes on examination--resolved--Continue albuterol and Wixela--likely cause of peripheral eosinophilia
Anxiety--Continue escitalopram
Constipation----continue polyethylene glycol
DVT prophylaxis-on Eliquis
Code status -- FULL CODE
Addendum entered and electronically signed by Zoila Gonzalez MD, Resident 06/24/23 17:21:
Patient's family agrees for rehab facility. Patient is now convinced to be discharged to SNF. Discharge planning tomorrow.
Original Note:
Today's Communication/Plan
-
Discharging today
Assessment / Plan
Assessment / Plan
IMPRESSION:
Bilateral lower extremity cellulitis versus lymphedema
Peripheral eosinophilia
Ambulatory dysfunction
Left glenohumeral arthritis
Urinary incontinence
Hypertension
Paroxysmal atrial fibrillation
Mild intermittent asthma
Anxiety
Constipation
PLAN:
Nonpurulent bilateral lower extremity cellulitis likely due to lymphedema
Suspect #1 DVT #2 PAD #3 cellulitis #4 heart failure
More likely venous stasis dermatitis as bilateral cellulitis is unusual
Labs not indicated for heart failure. LVEF 55 to 60%
Discharge home today --observe off antibiotics
Resume Lasix at home
1/2 blood culture negative, MRSA negative
Doppler lower extremity -negative for clot
Follow-up outpatient lymphedema clinic
Peripheral eosinophilia
Causes #1 neoplasm #2 allergies #3 asthma #4 connective tissue disorder #5 parasitic infection
Allergies versus uncontrolled asthma could potentially be the reason for this patient, we cannot rule out neoplasm though
more likely allergies
Wheezes not heard on examination
Ambulatory dysfunction-due to bilateral lower extremity swelling
Patient required heavy assistance to get out of from bed to a chair. PT/OT recommends skilled rehab
Patient refused to go to rehab or SNF--she would like to go home
Lasix 40 mg p.o. as it will help to decrease swelling and also improve ambulation
Left glenohumeral arthritis
Continue hydrocodone-acetaminophen as needed
Urinary incontinence
Bladder scan did not show retention of urine but some incontinence
Continue mirabegron
Hypertension
Continue losartan
Proximal atrial fibrillation
No recent events
Continue Eliquis
Mild intermittent asthma
With wheezes on examination
Continue albuterol and Wixela
Anxiety
Continue escitalopram
Constipation
continue polyethylene glycol
DVT prophylaxis-on Eliquis
Anticipated Discharge: Today
Subjective/Interval History
-
Date of Service: June 24, 2023
Patient denies bilateral lower extremity pain, itching
Objective Data
-
Labs:
Laboratory Results
06/24/23
06:32
WBC 5.6
Hgb 10.5 L
Hct 30.4 L
Plt Count 216
Sodium 135
Potassium 4.1
Chloride 104
Carbon Dioxide 26
BUN 21 H
Creatinine 0.6
Glucose 109 H
Calcium 8.8
Vital Signs:
Vital Signs
Temp Pulse Resp BP Pulse Ox
98.4 F 64 17 127/55 91
06/23/23 23:28 06/23/23 23:28 06/23/23 23:28 06/23/23 23:28 06/23/23 23:28
I&O
06/23/23 06/24/23 06/25/23
06:59 06:59 06:59
Intake Total 1680 / 1680 600 / 600
Output Total 1250 / 1250 1950 / 1950
Balance 430 / 430 -1350 / -1350
Review of Systems
-
History Source: Patient
All other systems: Reviewed and negative
Physical Exam
-
General: Comfortable and Conversant
HEENT: Normocephalic and Atraumatic
Respiratory: Clear to Auscultation
Cardiac: Regular Rhythm, S1/S2 and Murmur (Mechanical valve click)
GI: Soft and Nontender
Musculoskeletal: Other (Edema has improved significantly with decrease redness)
Skin: Other (Purplish discoloration, skin thickening)
Neuro: AO x 3
Psych: Calm
Data Reviewed
-
Labs: Labs Reviewed by me and Discussed with Physician
[2023-06-24] MEDS: ADVAIR HFA 115/21 MCG INHALER 2 PUFF INH ×2 (08:28→20:01)
[2023-06-24] MEDS: COZAAR 50 MG PO (08:53)
[2023-06-24] MEDS: HIPREX 1 GRAM PO ×2 (08:53→21:22)
[2023-06-24] MEDS: LASIX 40 MG PO (08:54)
[2023-06-24] MEDS: ELIQUIS 5 MG PO ×2 (08:54→21:22)
[2023-06-24] MEDS: LEXAPRO 10 MG PO (08:54)
[2023-06-24] MEDS: VENTOLIN NEBULES 2.5 MG INH (11:20)
[2023-06-24] MEDS: TYLENOL 650 MG PO (13:02)
--- NOTE | 2023-06-24 13:52 | W.PN.ID1 ---
Date of Service
Date of Service: June 24, 2023
Today's Communication
Observe off antibiotics for
Assessment / Plan
Venous Stasis dermatitis
Bilateral knee replacements
Lymphedema - chronic
Class III Obesity
- most likely venous stasis dermatitis - unlikely cellulitis; note bilateral cellulitis is quite unusual. erythema has resolved very rapidly with elevation and compression - was most likely venous stasis dermatitis, observe off antibiotics.
- compression/elevation as tolerated
- trial of SCDs
- consider another dose of lasix
- if she is able to mobilize the fluid in the legs she may have less difficulties with walking
--> referral to lymphedema clinic following discharge.
- follow clinically
Chief Complaint
-: Cellulitis
Vital Signs / Physical Exam
Vital Signs
Vital Signs
Temp Pulse Resp BP Pulse Ox
98.6 F 60 18 141/55 95
06/24/23 07:55 06/24/23 08:53 06/24/23 08:34 06/24/23 08:53 06/24/23 08:34
Physical Exam
Constitutional: No Acute Distress, Comfortable and Non-toxic
Head: Normocephalic
Eyes: Sclera Anicteric
Pulmonary: Non Labored
Extremities: Edema (2+) and Venous Insufficiency
Neurological: Awake and Alert
Psychological: Calm
Objective Data
Lab Data
Lab Results
06/24/23 06:32
06/24/23 06:32
Estimated Creat Clear 69 ml/min 06/24/23 06:32
Lactic Acid 1.3 mmol/L (0.7-2.0) 06/21/23 16:30
Most recent labs reviewed.
Micro Results:
06/21/23 16:30 Blood Culture - Preliminary
Blood/Venous No Growth in 48 hours- Final report to follow
06/21/23 16:30 Blood Culture - Preliminary
Blood/Venous No Growth in 48 hours- Final report to follow
06/22/23 05:50 MRSA Screen - Final
Nose No Methicillin Resistant Staphylococcus aureus isolated.
[2023-06-24 15:55] VITALS: BP 133/54
--- NOTE | 2023-06-24 18:07 | CM ---
patient is stable for dc home since pt/family did not want pt to go to rehab.however when son and dil arrived to [facility] home, she was not able to walk and they could not take her home.instead they wanted short term placement for
patient.referrals sent to facilities.attending aware that family now agreeable to rehab.plan dc to snf when bed available.she has medicare.
[2023-06-24] MEDS: CLARITIN 10 MG PO (21:22)
[2023-06-24] MEDS: DETROL LA 2 MG PO (21:22)
[2023-06-24] MEDS: VITAMIN D3 (cholecalciferol) 25 MCG PO (21:23)
[2023-06-24] MEDS: XALATAN OPHTHALMIC SOLUTION 1 DROP BOTH EYES (21:23)
[2023-06-24 23:53] VITALS: BP 136/49
--- NOTE | 2023-06-25 01:30 | PTCARENOTE ---
Pt with confused conversation throughout the night but oriented X3. Pt possibly hallucinating. House HOST/HOSTESS HEAD aware.
[2023-06-25 06:00] VITALS: BMI 38.2
[2023-06-25] MEDS: SYNTHROID 50 MCG PO (06:17)
[2023-06-25] MEDS: TYLENOL 650 MG PO ×2 (06:20→23:53)
[2023-06-25 07:00] VITALS: BP 166/60
[2023-06-25] MEDS: ELIQUIS 5 MG PO ×2 (09:00→20:21)
[2023-06-25] MEDS: LEXAPRO 10 MG PO (09:00)
--- NOTE | 2023-06-25 09:00 | W.PN.HOSP.TC ---
Addendum entered and electronically signed by Manasa Ying MD 06/25/23 14:51:
pt seen and examined independently--Agree with plan as set forth by Dr. Gonzalez
GENERAL: well developed, well nourished, obese female in no apparent distress
HEENT: NC/AT
HEART: regular rate and rhythm, +S1, +S2
LUNGS : CTA bilaterally
ABDOM: soft, nontender, nondistended, + bowel sounds
EXT: no cyanosis, clubbing-- bilateral redness improved and swelling down
NEUROLOGIC: tremor to left arm
Bilateral lower extremity cellulitis (unusual)--likely venous stasis changes caused by lymphedema--doubt CHF (no h/o and pro BNP 183)-- US without PAD, doubt DVT (as pt on Eliquis)--would use compression (fan wraps, pt did not tolerate) and
elevation--resume outpt lasix--ECHO WNL--apprec ID-- ancef stopped, no abx at d/c
Ambulatory dysfunction--due to bilateral lower extremity swelling--PT/OT--pt not interested in rehab, would prefer to do therapy at home--did not go well when son arrived to flower buncher or picker pt--now going to SNF (better choice)--d/c when bed available
Left glenohumeral arthritis--Continue hydrocodone-acetaminophen as needed
Urinary incontinence--bladder scan protocol--Continue mirabegron
Essential Hypertension--Continue losartan
Paroxysmal atrial fibrillation--cont eliquis
Mild intermittent asthma--With wheezes on examination--resolved--Continue albuterol and Wixela--likely cause of peripheral eosinophilia
Anxiety--Continue escitalopram
Constipation--pt with large BM--did not need rectal suppository--had 1 episode of vomiting
DVT prophylaxis-on Eliquis
Code status -- FULL CODE
Original Note:
Today's Communication/Plan
-
Discharge to rehab
Assessment / Plan
Assessment / Plan
IMPRESSION:
Bilateral lower extremity cellulitis versus lymphedema
Peripheral eosinophilia
Ambulatory dysfunction
Left glenohumeral arthritis
Urinary incontinence
Hypertension
Paroxysmal atrial fibrillation
Mild intermittent asthma
Anxiety
Constipation
PLAN:
Nonpurulent bilateral lower extremity cellulitis likely due to lymphedema
Suspect #1 DVT #2 PAD #3 cellulitis #4 heart failure
More likely venous stasis dermatitis as bilateral cellulitis is unusual
Labs not indicated for heart failure. LVEF 55 to 60%
Discharge home today --observe off antibiotics
Resume Lasix at home
1/2 blood culture negative, MRSA negative
Doppler lower extremity -negative for clot
Follow-up outpatient lymphedema clinic
Peripheral eosinophilia-- improving
Causes #1 neoplasm #2 allergies #3 asthma #4 connective tissue disorder #5 parasitic infection
Allergies versus uncontrolled asthma could potentially be the reason for this patient, we cannot rule out neoplasm though
more likely allergies
Wheezes not heard on examination
Ambulatory dysfunction-due to bilateral lower extremity swelling
Patient required heavy assistance to get out of from bed to a chair. PT/OT recommends skilled rehab
Patient and the family has agreed for rehab. Plan to discharge today
Resume to outpatient Lasix
Left glenohumeral arthritis
Continue hydrocodone-acetaminophen as needed
Urinary incontinence
Bladder scan did not show retention of urine but some incontinence
Continue mirabegron
Hypertension
Continue losartan
Proximal atrial fibrillation
No recent events
Continue Eliquis
Mild intermittent asthma
With wheezes on examination
Continue albuterol and Wixela
Anxiety
Continue escitalopram
Constipation
continue polyethylene glycol
Plan is to discharge to SNF. Patient did not agree to this decision earlier and family was okay with patient going home as she has support. Yesterday when patient's son came to take her he was not able to help her out of the bed and patient was
unable to walk. She required 2 assistance. Patient's family agreed on rehab for a short time. Patient has agreed too. Plan to discharge today when bed available.
DVT prophylaxis-on Eliquis
Anticipated Discharge: 24 - 48 hours
Subjective/Interval History
-
Date of Service: June 25, 2023
Patient denies chest pain, shortness of breath
Objective Data
-
Vital Signs:
Vital Signs
Temp Pulse Resp BP Pulse Ox
97.9 F 61 16 166/60 90
06/25/23 07:00 06/25/23 07:00 06/25/23 07:00 06/25/23 07:00 06/25/23 07:00
I&O
06/24/23 06/25/23 06/26/23
06:59 06:59 06:59
Intake Total 600 / 600 540 / 540
Output Total 1950 / 1950 975 / 975
Balance -1350 / -1350 -435 / -435
Review of Systems
-
All other systems: Reviewed and negative
Physical Exam
-
General: Comfortable, Conversant and Obese
HEENT: Normocephalic and Atraumatic
Respiratory: Clear to Auscultation
Cardiac: Regular Rhythm, S1/S2 and Murmur
GI: Soft, Nontender and Nondistended
Musculoskeletal: Other (Edema has improved bilaterally with decreased redness)
Skin: Other (Skin thickening with some purplish discoloration)
Data Reviewed
-
Labs: Labs Reviewed by me and Discussed with Physician
[2023-06-25] MEDS: LASIX 40 MG PO (09:03)
[2023-06-25] MEDS: COZAAR 50 MG PO (09:03)
[2023-06-25] MEDS: HIPREX 1 GRAM PO ×2 (09:03→20:21)
[2023-06-25] MEDS: ADVAIR HFA 115/21 MCG INHALER 2 PUFF INH ×2 (09:07→18:15)
[2023-06-25] MEDS: VENTOLIN NEBULES 2.5 MG INH (11:18)
--- NOTE | 2023-06-25 14:21 | W.PN.ID1 ---
Date of Service
Date of Service: June 25, 2023
Today's Communication
Continue compressive modalities to the lower extremities. Follow off antibiotics.
Assessment / Plan
Venous Stasis dermatitis
Bilateral knee replacements
B/L LE Lymphedema - chronic
Class III Obesity
- most likely venous stasis dermatitis - unlikely cellulitis; note bilateral cellulitis is quite unusual. erythema has resolved very rapidly with elevation and compression - was most likely venous stasis dermatitis, observe off antibiotics.
- compression/elevation as tolerated
- trial of SCDs
--> referral to lymphedema clinic following discharge.
- follow clinically
Chief Complaint
-: Cellulitis and Other (Lymphedema LE's)
Vital Signs / Physical Exam
Vital Signs
Vital Signs
Temp Pulse Resp BP Pulse Ox
97.9 F 68 16 166/63 96
06/25/23 07:00 06/25/23 11:22 06/25/23 11:22 06/25/23 09:03 06/25/23 11:22
Physical Exam
Constitutional: No Acute Distress, Comfortable, Chronically Ill and Non-toxic
Pulmonary: Non Labored
Gastrointestinal: Non Distended
Extremities: Edema and Other (PANCHO in place B/L LE's)
Skin: Negative Rash or Jaundice
Objective Data
Lab Data
Lab Results
06/24/23 06:32
06/24/23 06:32
Estimated Creat Clear 69 ml/min 06/24/23 06:32
Lactic Acid 1.3 mmol/L (0.7-2.0) 06/21/23 16:30
Most recent labs reviewed.
Micro Results:
06/21/23 16:30 Blood Culture - Preliminary
Blood/Venous No Growth in 72 hours- Final report to follow
06/21/23 16:30 Blood Culture - Preliminary
Blood/Venous No Growth in 72 hours- Final report to follow
06/22/23 05:50 MRSA Screen - Final
Nose No Methicillin Resistant Staphylococcus aureus isolated.
[2023-06-25] MEDS: ZOFRAN 4 MG IV (15:09)
[2023-06-25 15:31] VITALS: BP 135/55
[2023-06-25] MEDS: DETROL LA 2 MG PO (20:21)
[2023-06-25] MEDS: XALATAN OPHTHALMIC SOLUTION 1 DROP BOTH EYES (20:21)
[2023-06-25] MEDS: VITAMIN D3 (cholecalciferol) 25 MCG PO (20:21)
[2023-06-25] MEDS: CLARITIN 10 MG PO (20:21)
[2023-06-26 00:02] VITALS: BP 116/45
--- NOTE | 2023-06-26 05:13 | PTCARENOTE ---
pt urinated 150 mls via purewick throughout the night. Pt bladder scanned for 403. Pt refusing straight cath at this time.
[2023-06-26] MEDS: SYNTHROID 50 MCG PO (05:22)
[2023-06-26 06:00] VITALS: BMI 37.7
[2023-06-26 07:10] VITALS: BP 141/60
[2023-06-26 07:54] LABS: Hemoglobin 10.6 g/dL (12.0-16.0); Mean Corp Hgb Conc. 33.1 g/dL (33.0-37.0); Mean Corpuscular Hgb 30.3 pg (27.0-31.0); Mean Corpuscular Volume 91.4 fL (81.0-99.0); Mean Platelet Volume 9.8 fL (7.4-10.4); Platelet Count 201 10^3/uL (130-400); Red Cell Dist. Width 14.3 % (11.5-14.5)
[2023-06-26 08:16] LABS: Blood Urea Nitrogen 18 mg/dl (7-17); Calcium 8.7 mg/dl (8.4-10.2); Carbon Dioxide 26 mmol/L (22-30); Chloride 104 mmol/L (98-107); Estimated Creatinine Clearance 68 ml/min; Glucose 102 mg/dl (70-99); Magnesium 2.3 mg/dl (1.6-2.3); Potassium 4.1 mmol/L (3.5-5.1); Sodium 139 mmol/L (135-145); eGFR > 60.00
[2023-06-26] MEDS: ADVAIR HFA 115/21 MCG INHALER 2 PUFF INH ×2 (08:26→18:15)
[2023-06-26] MEDS: LEXAPRO 10 MG PO (08:56)
[2023-06-26] MEDS: ELIQUIS 5 MG PO ×2 (08:57→20:28)
[2023-06-26] MEDS: LASIX 40 MG PO (08:57)
[2023-06-26] MEDS: COZAAR 50 MG PO (08:57)
[2023-06-26] MEDS: HIPREX 1 GRAM PO ×2 (08:57→20:28)
--- NOTE | 2023-06-26 11:08 | W.PN.HOSP.TC ---
Addendum entered and electronically signed by Manasa Ying MD 06/26/23 12:51:
pt seen and examined independently--Agree with plan as set forth by Dr. Gonzalez
GENERAL: well developed, well nourished, obese female in no apparent distress
HEENT: NC/AT
HEART: regular rate and rhythm, +S1, +S2
LUNGS : CTA bilaterally
ABDOM: soft, nontender, nondistended, + bowel sounds
EXT: no cyanosis, clubbing-- bilateral redness improved and swelling down
NEUROLOGIC: tremor to left arm
venous stasis changes caused by lymphedema--doubt CHF (no h/o and pro BNP 183)-- US without PAD, doubt DVT (as pt on Eliquis)--would use compression (fan wraps, pt did not tolerate) and elevation--resume outpt lasix--ECHO WNL--apprec ID-- ancef
stopped, no abx at d/c
Ambulatory dysfunction--due to bilateral lower extremity swelling--PT/OT--pt not interested in rehab, would prefer to do therapy at home--did not go well when son arrived to quill picking machine operator pt--now going to SNF (better choice)--d/c when bed available
peripheral eosinophilia -- agree with differential laid out by Dr. Gonzalez--asthma/allergies most likely--if desired, can follow up with outpt PCP for further investigation
Left glenohumeral arthritis--Continue hydrocodone-acetaminophen as needed
Urinary incontinence--bladder scan protocol--Continue mirabegron
Essential Hypertension--Continue losartan
Paroxysmal atrial fibrillation--cont eliquis
Mild intermittent asthma--With wheezes on examination--resolved--Continue albuterol and Wixela--likely cause of peripheral eosinophilia
Anxiety--Continue escitalopram
Constipation--pt with large BM--did not need rectal suppository--had 1 episode of vomiting
DVT prophylaxis-on Eliquis
Code status -- FULL CODE
Original Note:
Today's Communication/Plan
-
Edema resolved
continue fan wrap
dc to rehab facility when bed available
resume lasix outpatient
Assessment / Plan
Assessment / Plan
IMPRESSION:
Bilateral lower extremity cellulitis versus lymphedema
Peripheral eosinophilia
Ambulatory dysfunction
Left glenohumeral arthritis
Urinary incontinence
Hypertension
Paroxysmal atrial fibrillation
Mild intermittent asthma
Anxiety
Constipation
PLAN:
Nonpurulent bilateral lower extremity cellulitis likely due to lymphedema
Suspect #1 DVT #2 PAD #3 cellulitis #4 heart failure
More likely venous stasis dermatitis as bilateral cellulitis is unusual
Labs not indicated for heart failure. LVEF 55 to 60%
Discharge home today --observe off antibiotics
Edema resolved. Continue lasix at home
1/2 blood culture negative, MRSA negative
Doppler lower extremity -negative for clot
Follow-up outpatient lymphedema clinic
Peripheral eosinophilia-- improving
Causes #1 neoplasm #2 allergies #3 asthma #4 connective tissue disorder #5 parasitic infection
Allergies versus uncontrolled asthma could potentially be the reason for this patient, we cannot rule out neoplasm though
more likely allergies
Wheezes not heard on examination
Ambulatory dysfunction-due to bilateral lower extremity swelling
Patient required heavy assistance to get out of from bed to a chair. PT/OT recommends skilled rehab
Patient and the family has agreed for rehab. possible dc tomorrow
Resume to outpatient Lasix
Left glenohumeral arthritis
Continue hydrocodone-acetaminophen as needed
Urinary incontinence
Bladder scan did not show retention of urine but some incontinence
Continue mirabegron
Hypertension
Continue losartan
Proximal atrial fibrillation
No recent events
Continue Eliquis
Mild intermittent asthma
With wheezes on examination
Continue albuterol and Wixela
Anxiety
Continue escitalopram
Constipation
continue polyethylene glycol
Plan is to discharge to SNF. Patient did not agree to this decision earlier and family was okay with patient going home as she has support. Yesterday when patient's son came to take her he was not able to help her out of the bed and patient was
unable to walk. She required 2 assistance. Patient's family agreed on rehab for a short time. Patient has agreed too. Plan to discharge today when bed available.
DVT prophylaxis-on Eliquis
Anticipated Discharge: Within 24 hours
Subjective/Interval History
-
Date of Service: June 26, 2023
Patient had 2 episodes of vomiting yesterday after dinner. She denies abdominal pain, nausea. Patient had 2 bowel movements since yesterday.
Objective Data
-
Labs:
Laboratory Results
06/26/23
07:24
WBC 6.0
Hgb 10.6 L
Hct 32.0 L
Plt Count 201
Sodium 139
Potassium 4.1
Chloride 104
Carbon Dioxide 26
BUN 18 H
Creatinine 0.6
Glucose 102 H
Calcium 8.7
Vital Signs:
Vital Signs
Temp Pulse Resp BP Pulse Ox
98.3 F 71 20 141/60 96
06/26/23 07:10 06/26/23 08:32 06/26/23 08:32 06/26/23 07:10 06/26/23 08:32
I&O
06/25/23 06/26/23 06/27/23
06:59 06:59 06:59
Intake Total 540 / 540 120 / 120
Output Total 975 / 975 800 / 800
Balance -435 / -435 -680 / -680
Review of Systems
-
History Source: Patient
All other systems: Reviewed and negative (except mentioned )
Abdomen/GI: Reports Vomiting and Constipated (improved ); Denies Diarrhea
Physical Exam
-
General: Comfortable and Conversant
HEENT: Normocephalic and Atraumatic
Respiratory: Clear to Auscultation
Cardiac: Regular Rhythm, S1/S2 and Murmur
GI: Soft, Nontender, Nondistended and Normal Bowel Sounds
Musculoskeletal: No Edema
Neuro: AO x 3
Psych: Calm
Data Reviewed
-
Labs: Labs Reviewed by me and Discussed with Physician
[2023-06-26] MEDS: VENTOLIN NEBULES 2.5 MG INH (11:22)
[2023-06-26 13:03] VITALS: BP 120/61; PULSE 62; O2SAT 90
[2023-06-26 15:02] VITALS: BP 124/43
[2023-06-26] MEDS: TYLENOL 650 MG PO (15:36)
[2023-06-26] MEDS: CLARITIN 10 MG PO (20:27)
[2023-06-26] MEDS: DETROL LA 2 MG PO (20:28)
[2023-06-26] MEDS: VITAMIN D3 (cholecalciferol) 25 MCG PO (20:28)
[2023-06-26] MEDS: XALATAN OPHTHALMIC SOLUTION 1 DROP BOTH EYES (20:35)
[2023-06-26 23:57] VITALS: BP 135/59
[2023-06-27] MEDS: SYNTHROID 50 MCG PO (05:19)
[2023-06-27 06:00] VITALS: BMI 37.3
--- NOTE | 2023-06-27 06:26 | W.PN.UPDATE ---
Update Note
Progress Note Update
family requesting ua due to pt with some confusion.
will order per request
[2023-06-27 07:43] LABS: Blood Urea Nitrogen 16 mg/dl (7-17); Calcium 8.6 mg/dl (8.4-10.2); Carbon Dioxide 28 mmol/L (22-30); Chloride 103 mmol/L (98-107); Estimated Creatinine Clearance 67 ml/min; Glucose 101 mg/dl (70-99); Potassium 3.8 mmol/L (3.5-5.1); Sodium 137 mmol/L (135-145); eGFR > 60.00
[2023-06-27 07:55] VITALS: BP 161/63
[2023-06-27] MEDS: COZAAR 50 MG PO (08:43)
[2023-06-27] MEDS: ELIQUIS 5 MG PO (08:44)
[2023-06-27] MEDS: LEXAPRO 10 MG PO (08:44)
[2023-06-27] MEDS: HIPREX 1 GRAM PO (08:44)
[2023-06-27] MEDS: LASIX 40 MG PO (08:44)
[2023-06-27] MEDS: ADVAIR HFA 115/21 MCG INHALER INH ×2 (08:50→09:00)
[2023-06-27 10:39] LABS: Urine Albumin Negative (Neg - Trace); Urine Bilirubin Negative (Negative); Urine Character Clear (Clear); Urine Color Yellow; Urine Glucose Negative (Negative); Urine Ketone Negative (Negative); Urine Leukocyte Negative (Negative); Urine Nitrite Negative (Negative); Urine Occult Blood Negative (Negative); Urine Urobilinogen Negative (Neg - 1+)
--- NOTE | 2023-06-27 10:54 | W.PN.HOSP.TC ---
Today's Communication/Plan
-
d/c
Assessment / Plan
Assessment / Plan
pt is an 88 year old female
venous stasis changes caused by lymphedema--doubt CHF (no h/o and pro BNP 183)-- US without PAD, doubt DVT (as pt on Eliquis)--would use compression (fan wraps, pt did not tolerate) and elevation--resume outpt lasix--ECHO WNL--apprec ID-- ancef
stopped, no abx at d/c--resolved
Ambulatory dysfunction--due to bilateral lower extremity swelling--PT/OT--pt not interested in rehab, would prefer to do therapy at home--did not go well when son arrived to crop picker pt--now going to SNF (better choice)--d/c
peripheral eosinophilia -- agree with differential laid out by Dr. Gonzalez--asthma/allergies most likely--if desired, can follow up with outpt PCP for further investigation
Left glenohumeral arthritis--Continue hydrocodone-acetaminophen as needed
Urinary incontinence--bladder scan protocol--Continue mirabegron
Essential Hypertension--Continue losartan
Paroxysmal atrial fibrillation--cont eliquis
Mild intermittent asthma--With wheezes on examination--resolved--Continue albuterol and Wixela--likely cause of peripheral eosinophilia
Anxiety--Continue escitalopram
Constipation--pt with large BM--did not need rectal suppository--had 1 episode of vomiting
DVT prophylaxis-on Eliquis
Code status -- FULL CODE
Anticipated Discharge: Today
Subjective/Interval History
-
Date of Service: June 27, 2023
pt c/o stomach upset
Objective Data
-
Labs:
Laboratory Results
06/27/23
06:05
Sodium 137
Potassium 3.8
Chloride 103
Carbon Dioxide 28
BUN 16
Creatinine 0.6
Glucose 101 H
Calcium 8.6
Vital Signs:
max temp for 24 hours
06/26/23
15:02
Temp 98.7 F
Vital Signs
Temp Pulse Resp BP Pulse Ox
98.2 F 70 20 161/68 94
06/27/23 07:55 06/27/23 08:43 06/27/23 07:55 06/27/23 08:43 06/27/23 08:40
I&O
06/26/23 06/27/23 06/28/23
06:59 06:59 06:59
Intake Total 120 / 120 600 / 600
Output Total 800 / 800 1100 / 1100
Balance -680 / -680 -500 / -500
Review of Systems
-
All other systems: Reviewed and negative
Abdomen/GI: Reports Other ('upset stomach')
Physical Exam
-
General: Well Developed, Well Nourished and No Apparent Distress
HEENT: Normocephalic and Atraumatic
Respiratory: Clear to Auscultation; Negative Wheezes or Rhonchi
Cardiac: Regular Rhythm and S1/S2; Negative Murmur
GI: Soft, Nontender, Nondistended and Normal Bowel Sounds
Musculoskeletal: No Clubbing, No Cyanosis and No Edema
Skin: Warm
Neuro: Awake
[2023-06-27] MEDS: VENTOLIN NEBULES 2.5 MG INH (11:15)
--- NOTE | 2023-06-27 11:46 | W.DCSUMMARY ---
Addendum entered and electronically signed by Manasa Ying MD 06/27/23 14:08:
Fully read and agree with d/c summary as put forth by Dr. Gonzalez.
Time for discharge was 33 minutes.
Original Note:
Discharge Summary
Discharge Data
Date of Admission: 06/21/23
Date of Discharge: 06/27/23
-
Pending Results: No
Hospital Course
Discharging Physician : Dr Manasa Ying, Dr. Zoila Gonzalez
Disposition- SNF
Primary care physician : Dr Karen Davis
Discharge diagnosis :
Bilateral lower extremity cellulitis versus lymphedema
Peripheral eosinophilia
Ambulatory dysfunction
Left glenohumeral arthritis
Urinary incontinence
Essential Hypertension
Paroxysmal atrial fibrillation
Mild intermittent asthma
Anxiety
Constipation
Hospital Course : 88-year-old female presented to the ED with bilateral lower leg swelling, redness, pain. She has a past medical history of paroxysmal atrial fibrillation, pacemaker placement in 2019, hypertension, right breast cancer s/p
mastectomy, mild intermittent asthma, frequent falls. Prior to coming to dosed on ED patient was seen by her primary care physician who started her on Keflex for 7 days. Patient's symptoms did not improve, outpatient antibiotics failure. In the
ED patient's vitals are stable afebrile. She was started on clindamycin, IV fluids. As patient has been in SNF in the past, risk of MRSA, vancomycin was started. We consulted ID, they preferred cefazolin due to higher bioavailability. Peripheral
eosinophilia was noted on the labs potentially due to allergies, would defer to PCP to follow up outpatient.
On the second day of hospitalization patient's symptoms improved with antibiotics. The rash and edema improved, Cornelius wrap was advised. Patient remained afebrile. She was also resumed on 40 mg Lasix PO which also helped with swelling. Patient was then
off antibiotics and we clinically observed. The edema and rash significantly improved off antibiotics, with cornelius wrap, compression/elevation. Patient was unable to ambulate by herself. She was only able to get up from the bed by assistance of two.
PT/OT recommended skilled rehab facility. Patient was not interested in rehab at first. Soon patient's family agreed for short course of rehab and later patient was convinced convinced for the same .
On the day of discharge patient's vitals are stable, afebrile. There is no lower extremity swelling, erythema, pain. Advised patient to continue elevation/compression of legs. She will not be discharged on any antibiotics.
#All the home medication are resumed at discharge.
Important imaging findings :
Doppler arterial ultrasound-
IMPRESSION:
Right leg: JENNYFER within normal limits measuring 1.09. TBI is decreased measuring 0.55. Nonspecific elevated velocities seen within the common femoral artery measuring 246 cm/s. Monophasic continuous flow within the common femoral, superficial femoral,
and popliteal arteries with no focal stenosis appreciated. Multiphasic pedal waveforms.
Left leg: JENNYFER within normal limits measuring 1.05. TBI is decreased measuring 0.52. Elevated velocities within the common femoral artery measuring 276 cm/s. Monophasic continues flow within the common femoral, superficial femoral, and popliteal
arteries with no focal stenosis appreciated. Discrepant pedal waveforms with multiphasic flow within the dorsalis pedis artery.
Chest x-ray
IMPRESSION:
No acute cardiopulmonary process.
Discharge Plan
-
Patient Disposition: Home (Routine Discharge)
Discharge Diagnosis/Procedures: Bilateral lower extremity cellulitis versus lymphedema
Peripheral eosinophilia
Ambulatory dysfunction
Left glenohumeral arthritis
Urinary incontinence
Hypertension
Paroxysmal atrial fibrillation
Mild intermittent asthma
Anxiety
Constipation
Diet: Regular
Activity: With Walker
Driving Restrictions: As prior to admission
Bathing Restrictions: None
Referrals:
Carolina Davis PA [Family Provider] - in less than 1 week
Additional Discharge Medication Instructions: Follow-up outpatient in lymphedema clinic
Advised for compression/elevation of the legs
Prescriptions:
Continued
levothyroxine 50 MCG tablet
50 mcg PO DAILY
escitalopram oxalate 10 MG tablet
10 mg PO DAILY
fluticasone propion-salmeterol [Wixela Inhub] 250-50 mcg/dose Blister With Device
1 inh INHALATION R BID Qty: 0
Eliquis 5 mg Tablet
5 mg PO BID Qty: 0
losartan 50 mg Tablet
50 mg PO DAILY
furosemide [Lasix] 20 mg Tablet
40 mg PO DAILY
Patient Comments:
06/21/2023, pt. taking two tablets daily since last per son.
mirabegron [Myrbetriq] 50 mg Tablet Extended Release 24 Hr
25 mg PO DAILY@1999
albuterol sulfate 2.5 mg /3 mL (0.083 %) solution for nebulization
2.5 mg inhalation R DAILY@1199
albuterol sulfate 90 mcg/actuation HFA aerosol inhaler
1 puff INHALATION R Q4HPRN PRN (Reason: SOB)
fluticasone propionate 50 mcg/actuation [place],Suspension
1 spray INTRANASAL DAILY
methenamine hippurate 1 gram Tablet
1 g PO BID
loratadine 10 mg Tablet
10 mg PO DAILY@1999
cholecalciferol (vitamin D3) [Vitamin D3] 25 mcg (1,000 unit) Tablet
25 mcg PO DAILY@1999
hydrocodone-acetaminophen 10-325 mg tablet
1 tab PO BIDPRN PRN (Reason: severe pain)
acetaminophen 650 mg Tablet Extended Release
650 mg PO BID
latanoprost 0.005 % Drops
1 drp BOTH EYES HS
polyethylene glycol 3350 [Miralax] 17 gram Powder In Packet
17 g PO HSPRN PRN (Reason: constipation)
acetaminophen 650 mg Tablet Extended Release
650 mg PO DAILYPRN PRN (Reason: mild pain)
Discontinued
cephalexin 500 mg Capsule
500 mg PO TID
Patient Comments:
06/21/2023, pt. filled this med. on 06/14/2023 and is instructed to take one capsule TID for 10 days; per son, pt. is on day 6 or 7 of this med. and has taken two doses today already.
Discharge Date and Time
Print Language: LIBYAN
--- NOTE | 2023-06-27 12:52 | CM ---
CM reviewed pt with Dr Ying- ready for dc
Multiple calls with DIL/[place] and son to review dc planning
Family not interested in accepting SNFs due to distance
Additional referrals sent in [facility]- accepted at [facility]
Family in agreement
IMM verbally reviewed over phone- copy left with dc paperwork per family request
Medical necessity and transport forms on chart
BLS arranged through [facility]
Discharge Disposition- [facility] via [facility] [address] [facility]
Phone- [phone] [address]
Fax- [phone]
[2023-06-27 14:44] VITALS: BP 152/55
== END 2023-06-27 15:59 | DRG 603 ==
LOC: 4 EAST ACU 20:01
PROVIDERS: Nurse Practitioner Family; Physician Assistant; Student in an Organized Health Care Education/Training Program; ADMITTING PHYSICIAN Internal Medicine; CONSULT PHYSICIAN Student in an Organized Health Care Education/Training Program; EMERGENCY PHYSICIAN Emergency Medicine; FAMILY PHYSICIAN Physician Assistant Medical
DX: L03.115 Cellulitis of right lower limb (principal); L03.116 Cellulitis of left lower limb; I89.0 Lymphedema, not elsewhere classified; I11.9 Hypertensive heart disease without heart failure; I48.0 Paroxysmal atrial fibrillation; J45.20 Mild intermittent asthma, uncomplicated; F41.9 Anxiety disorder, unspecified; K56.41 Fecal impaction; E66.01 Morbid (severe) obesity due to excess calories; Z68.37 Body mass index [BMI] 37.0-37.9, adult
CPT/HCPCS: 51701; 51798; 71046; 73590; 80048; 81003; 83605; 83735; 83880; 85025; 85027; 87040; 87070; 93306; 93922; 93925; 94640; 96365; 96375; 97163; 97166; 97530; 99285